=== PATIENT | female | born 1945 | race Caucasian/White ===

== ENCOUNTER 2017-05-29 07:30 | Inpatient (IN) | payer MEDICARE, BC ==
[~2017-05-29 07:30] MED LIST: Povidone-Iodine 10% Soln 118.25 ML Bottle ONE; Thrombin (Bovine) 5,000 Unit Kit ONE
[2017-05-29] MEDS ORDERED: Scopolamine 1.5 MG Transdermal Patch TOP SCH (08:30)
[2017-05-29] MEDS ORDERED: Gabapentin 300 MG Cap PO ONE (08:30)
[2017-05-29] MEDS ORDERED: Succinylcholine 200 MG/10 ML MDV ONE (09:17)
[2017-05-29] MEDS ORDERED: Dexamethasone 4 MG/ML SDV ONE ×2 (09:17→11:11)
[2017-05-29] MEDS ORDERED: Rocuronium 50 MG/5 ML Vial ONE (09:17)
[2017-05-29] MEDS ORDERED: Neostigmine Methylsulfate 1 MG/ML 5 ML Syringe ONE (09:17)
[2017-05-29] MEDS ORDERED: Propofol 200 MG/20 ML SDV ONE ×2 (09:17→11:43)
[2017-05-29] MEDS ORDERED: Ondansetron 4 MG/2 ML SDV ONE (09:17)
[2017-05-29] MEDS ORDERED: Glycopyrrolate 0.2 MG/ML 5 ML MDV ONE (09:17)
[2017-05-29] MEDS ORDERED: Albuterol/Ipratropium 3.0-0.5 MG/3 ML Neb Soln NEB ONE (09:31)
[2017-05-29] MEDS: Lactated Ringers 1,000 ML IV SCH (09:41)
[2017-05-29] MEDS ORDERED: Clindamycin Phosphate 900 MG in Sodium Chloride 0.9% 100 ML IV ONE (10:00)
[2017-05-29] MEDS ORDERED: Ketamine 500 MG/5 ML MDV IV ONE (10:30)
[2017-05-29] MEDS ORDERED: Ropivacaine 49.25 ML, Ketorolac 30 MG, EPINEPHrine 0.5 MG, cloNIDine 80 MCG, Sodium Chl... INJECT ONE ×5 (10:30)
[2017-05-29] MEDS: Tranexamic Acid 730 MG in Sodium Chloride 0.9% 50 ML IV SCH ×2 (11:00→14:45)
[2017-05-29] MEDS ORDERED: Lactated Ringers 1,000 ML ONE ×2 (12:24→13:20)
[2017-05-29] MEDS ORDERED: Vancomycin 1 GM SDV ONE (13:52)
[2017-05-29] MEDS ORDERED: Magnesium Hydroxide 400 MG/5 ML Susp 30 ML Cup PO PRN (14:29)
[2017-05-29] MEDS ORDERED: Zolpidem 5 MG Tab PO PRN (14:29)
[2017-05-29] MEDS ORDERED: HYDROmorphone 1 MG/ML Syringe IVPUSH PRN (14:29)
[2017-05-29] MEDS ORDERED: Naloxone 0.4 MG/ML SDV IVPUSH PRN (14:29)
[2017-05-29] MEDS ORDERED: Diazepam 5 MG Tab PO PRN (14:29)
[2017-05-29] MEDS ORDERED: Ondansetron 4 MG/2 ML SDV IVPUSH PRN (14:29)
[2017-05-29] MEDS ORDERED: Aluminum Hydroxide/Magnesium Hydroxide/Simethicone Susp 30 ML Cup PO PRN (14:29)
[2017-05-29] MEDS ORDERED: Sennosides 8.6 MG Tab PO PRN (14:29)
[2017-05-29] MEDS ORDERED: Acetaminophen 1,000 MG in Premix Bag 1 BAG IV ONE (15:30)
[2017-05-29] MEDS: oxyCODONE 5 MG Tab PO PRN ×2 (15:33→20:16)
[2017-05-29] MEDS: VERIFY SCOPOLAMINE PATCH TOP SCH (16:31)
[2017-05-29] MEDS: Dexamethasone 4 MG/ML SDV IVPUSH SCH ×2 (16:32→22:17)
[2017-05-30] MEDS: oxyCODONE 5 MG Tab PO PRN ×2 (00:48→05:26)
[2017-05-30] MEDS: Lactated Ringers 1,000 ML IV SCH (01:26)
[2017-05-30] MEDS: Dexamethasone 4 MG/ML SDV IVPUSH SCH (03:06)
[2017-05-30] MEDS ORDERED: Acetaminophen/oxyCODONE 325-5 MG Tab PO PRN ×2 (08:03→14:33)
[2017-05-30] MEDS: VERIFY SCOPOLAMINE PATCH TOP SCH (08:22)
[2017-05-30 10:54] VITALS: BP 109/64
--- NOTE | 2017-05-30 11:50 | OR ---
DATE OF PROCEDURE: 05/29/2017 PREOPERATIVE DIAGNOSES: 1. Pseudoarthrosis at L4-L5. 2. 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 3. 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 POSTOPERATIVE DIAGNOSES: 1. Pseudoarthrosis at L4-L5. 2. 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 3. 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 PROCEDURES PERFORMED: 1. Use of intraoperative fluoroscopy. 2. Posterior lateral lumbar fusion at L3-L4 and L5-S1. 3. Revision of posterior lateral lumbar fusion at L4-L5. 4. Removal of previous instrumentation at L4-L5. 5. Posterior segmental instrumentation at L3-L4, L4-L5, and L5-S1. 6. Interbody cage placement at L3-L4. 7. Laminectomy required in addition to decompression for interbody placement at L3-L4. 8. Autograft from laminectomy used with Globus Signify allograft mixed and placed in the interbody space at L3-L4, as well as the posterior lateral fusion on the right at L3 through S1. BARREL ENDSHAKER ADJUSTER: MO Weaver ANESTHESIA: General endotracheal intubation. FLUIDS: Lactated Ringer solution. ESTIMATED BLOOD LOSS: 300 mL. COMPLICATIONS: None. SPECIMENS: None. DISCHARGE DISPOSITION: Stable to PACU. INSTRUMENTATION: Globus RISE 10 x 22, 10-degree, 8 x 14 mm interbody cage to L3-L4, 6.5 x 50 mm screws at L3, 7.5 x 45 mm screws at L4, 7.5 x 40 mm screws at L5, and 6.5 x 45 mm screws at S1. HISTORY AND INDICATIONS FOR PROCEDURE: The patient was seen by myself in the clinic. She had previously had a lumbar fusion in 2012 at [facility]. She did well for a period of time, and then started having increasing bilateral leg pain with the left worse than the right. Preoperative imaging confirmed the above mentioned diagnoses. Risks and benefits of the procedure were explained to the patient, and informed consent was obtained. DETAILS OF PROCEDURE: The patient was seen preoperatively by myself and the Anesthesia staff in the preoperative holding area, where the operative site was marked. She was brought to the operative suite by the Anesthesia staff where general anesthesia was administered. A sterile Ji catheter was placed. The fluoroscopy unit was draped in a sterile manner. Neuromonitoring leads were placed on the patient. The patient was then flipped into a prone position on a Mark table. All extremities were found to be well padded. The bed was flexed slightly, so that the head was more elevated than the lower extremities. Neuromonitoring leads were found to be normal at baseline and remained normal throughout the case. The patient was then prepped and draped in a sterile manner. Time-out was called, identifying the correct patient, the correct procedure, the correct site, and that antibiotics had begun within the appropriate period of time. The sterilely draped fluoroscopy unit was then brought into lateral position, and we marked L3 through S1 pedicles. I then made a midline incision, coming over the spinous process of L3 and the spinous process of S1 in a midline manner down to the fascia and spinous process. Bleeding was controlled during the case with Bovie electrocautery, bipolar electrocautery, and an Aquamantys 5.0 unit. I used cerebellar for retraction initially. I then used a Mike elevator for dissection. I dissected with a Bovie and a Mike elevator over the spinous processes, lamina, and transverse process of L1; as well as the spinous process, lamina, and sacral ala of S1. The laminectomy defect was then avoided by going more laterally, and I easily found the previous instrumentation at L4-L5. I then dissected down over the transverse processes of L4 and L5, and then inserted a Versa-Trac retractor for retraction. I then cleaned off the previous instrumentation and removed it, and used a pedicle probe to ensure that there was no breach of the medial lateral wall. These were measured, and then I inserted the screws into these previous screw holes. After that was accomplished, I then did the right side first placing screws at L3 and then S1 by drilling over the transverse process down to the medial border of the pars at L3, and then using a PediGuard and then pedicle probe tap, pedicle probe, and screw placement. This was repeated at S1, except that I palpated the cranial margin of the S1 lamina, and then came just lateral to the L5-S1 facet joint and then proceeded in the same manner. I did the left and then the right side. We tested our screws; S1 on the right was 14 and S1 on the left was 19. Otherwise, everything was 25 and above. I deemed that 14 was certainly reasonable, as they did look good on AP and lateral radiographs. After this had been accomplished, we focused on her laminectomy at L3-L4 for the central stenosis. The laminectomy was performed by removing soft tissue, and then taking the lamina off with rongeurs and Kerrisons, and saving it for autograft. After this had been accomplished, I was able to remove the ligamentum flavum with Kerrison rongeurs, protecting the dura with a long ball. We then came out and I made a left facetectomy at L3-L4 on the left. I was then able to identify the disk space at L3-L4 in a transforaminal manner and inserted a Halbur #4, and then a long blade and then sequential sommer from 7 to 10, pituitary rongeurs, curettes, and then I used the pituitaries again to remove any disk material for disk preparation and endplate preparation. I then mixed some autograft with some Signify allograft, and placed this anteriorly in the disk space using a bone funnel. I then inserted my interbody device under fluoroscopic visualization until it was at the anterior margin of the vertebral body, and then expanded it all the way. This appeared to be in good position on our AP and lateral views. Because there was no foraminal stenosis at L4-L5 and L5-S1, I did not place interbody devices at those levels. There was a minor amount of motion, and I thought that we could graft and just use our posterior lateral fusion. We then inserted our tulips and then placed our rods, which were 90 mm x 5.5, our locking caps, and then torqued down. I did have to use a shipping and receiving associate at the L3 level. After this had been accomplished, we then copiously irrigated with 3 L of Betadine-infused irrigation. I then grafted the right posterior lateral gutter with the transverse processes and ala and then placed the remaining autograft and allograft. After this had been accomplished, I applied half of the vancomycin under the fascia and half over the fascia; 1- 1/2 packets of Gelfoam powder under the fascia, and one half over the fascia. The deep fascia was closed with #1 STRATAFIX, then deep subcu closure with #2 STRATAFIX, followed by superficial subcutaneous closure with 3-0 STRATAFIX, followed by a sterile dressing. The patient was then rolled back into a supine position on hospital bed. Neuromonitoring leads were removed. POSTOPERATIVE CONDITION: The patient was transferred to the PACU in stable condition. Physician assistant men's lacrosse coach, Marilee Lopez NP, played an essential role in assisting in this case, helping to position the patient, retract structures as needed, as well as suturing and cutting sutures as indicated. Her presence improved patient's safety and decreased operative time. Barry Rand DO /[id number]
--- NOTE | 2017-06-19 09:30 | PCM.DCSUM1 ---
Discharge Summary - Hospital Course Free Text/Narrative:: Patient is status pod 2 of a lumbar fusion revision of L3-S1. She is doing well. Pain is under control with oral pain medication. PT/OT is going well. - Discharge Data Discharge Date: 05/30/17 Discharge Disposition: Home, Self-Care 01 Condition: Good - Patient Summary/Data Consults: Consultations 05/29/17 14:29 OT Evaluation and Treatment [CONS] Routine Please Evaluate and Treat. OT Reason for Consult: Strengthening This query below is only for informational purposes and is not editable. PT Evaluation and Treatment [CONS] Routine Please Evaluate and Treat. PT Reason for Consult: Strengthening This query below is only for informational purposes and is not editable. - Patient Instructions Diet: Regular Diet as Tolerated Activity: As Tolerated Activity, Other: No lifting greater than 5# for 1 month Driving: Do Not Drive Showering/Bathing: May Shower Wound/Incision Care: Change Dressing Daily Notify Provider of: Fever, Increased Pain, Swelling and Redness, Drainage, Nausea and/or Vomiting - Discharge Plan Prescriptions/Med Rec: Acetaminophen/oxyCODONE [Percocet 325-5 MG] 1 tab PO Q6HR #90 tablet Aspirin 325 mg PO DAILY #30 tablet Home Medications: Home Meds Folic Acid 1 mg PO DAILY 02/11/14 [History] Meloxicam [Mobic] 15 mg PO DAILY 02/11/14 [History] Omeprazole 20 mg PO DAILY 02/11/14 [History] Simvastatin [Zocor] 40 mg PO BEDTIME 02/11/14 [History] Alendronate [Fosamax] 70 mg PO Q7D@0600 12/02/14 [History] Calcium Carb/Vit D3/Minerals [Calcium 600+D Plus Minerals] 2 tab PO DAILY [History] Cyanocobalamin (Vitamin B-12) [B-12 Dots] 500 mcg PO DAILY 12/02/14 [History] Gabapentin 600 mg PO BID 12/02/14 [History] Multivitamin with Minerals [Multiple Vitamin] 1 tab PO DAILY 12/02/14 [History] Vitamin E 400 unit PO DAILY 12/02/14 [History] buPROPion HCl [Wellbutrin SR] 150 mg PO BID 12/02/14 [History] Ascorbate Calcium/Bioflavonoid [Lorene-C 500 MG] 1 tab PO DAILY 11/05/15 [History ] Methotrexate Sodium [Methotrexate] 25 mg IJ Q7D 11/05/15 [History] predniSONE [Prednisone] 5 mg PO ASDIRECTED 11/05/15 [History] sulfaSALAzine [Azulfidine] 1,000 mg PO BID 11/05/15 [History] Metoprolol Tartrate [Lopressor] 12.5 mg PO Q12HR 06/09/16 [History] Triamterene/Hydrochlorothiazid [Triamterene-HCTZ 37.5-25 MG] 1 tab PO DAILY [History] Sennosides/Docusate Sodium [Senokot-S Tablet] 1 each PO BID 04/24/17 [History] Acetaminophen/oxyCODONE [Percocet 325-5 MG] 1 tab PO Q6HR #90 tablet 05/30/17 [ Rx] Aspirin 325 mg PO DAILY #30 tablet 05/30/17 [Rx] Other Amb Orders: PT Evaluation and Treatment [CONS] Location: Determined By Patient Referrals: Marilee Lopez ASSOCIATE FACULTY [Nurse Practitioner] - (1 month follow up ) - Discharge Summary/Plan Comment DC Time >30 min.: Yes Discharge Summary/Plan Comment: Whit will be dcd today. She is to follow up with ortho in 1 month. She will be sent home on percocet. - Patient Data Vitals - Most Recent: Last Vital Signs Temp 36.7 C 05/30/17 10:53 Pulse 90 05/30/17 10:53 Resp 18 05/30/17 10:53 BP 109/64 05/30/17 10:53 Pulse Ox 94 L 05/30/17 10:53 Weight - Most Recent: 159 lb 1.016 oz Med Orders - Current: Current Medications Discontinued Medications Al Hydroxide/Mg Hydroxide (Mag-Al Plus) 30 ml PO Q4H PRN PRN Reason: Indigestion Albuterol/Ipratropium (Duoneb 3.0-0.5 Mg/3 Ml) 3 ml NEB ONETIME ONE Stop: 05/29/17 09:32 Last Admin: 05/29/17 09:49 Dose: 3 ml Ropivacaine 49.25 ml/Ketorolac Tromethamine 30 mg/Epinephrine HCl 0.5 mg/ Clonidine HCl 80 mcg/ Sodium Chloride 48.45 ml 0 ml INJECT ONETIME ONE Stop: 05/29/17 10:31 Last Admin: 05/29/17 12:22 Dose: 50 ml Dexamethasone (Dexamethasone) Confirm Administered Dose 4 mg .ROUTE .STK-MED ONE Stop: 05/29/17 09:18 Dexamethasone (Dexamethasone) Confirm Administered Dose 4 mg .ROUTE .STK-MED ONE Stop: 05/29/17 11:12 Dexamethasone (Dexamethasone) 4 mg IVPUSH Q6H ISELA Stop: 05/30/17 04:01 Last Admin: 05/30/17 03:06 Dose: 4 mg Diazepam (Valium.) 5 mg PO Q6H PRN PRN Reason: Spasms Fentanyl Citrate (Fentanyl) Confirm Administered Dose 500 mcg .ROUTE .STK-MED ONE Stop: 05/29/17 09:18 Gabapentin (Neurontin) 300 mg PO ONETIME ONE Stop: 05/29/17 08:31 Last Admin: 05/29/17 08:59 Dose: 300 mg Glycopyrrolate (Robinul) Confirm Administered Dose 1 mg .ROUTE .STK-MED ONE Stop: 05/29/17 09:18 Hydromorphone HCl (Dilaudid) 1 mg IVPUSH Q2H PRN PRN Reason: Pain Stop: 05/30/17 14:29 Clindamycin Phosphate 900 mg/ (Sodium Chloride) 106 mls @ 200 mls/hr IV ONETIME ONE Stop: 05/29/17 10:31 Last Admin: 05/29/17 10:55 Dose: 200 mls/hr Lactated Ringer's (Ringers, Lactated) 1,000 mls @ 100 mls/hr IV ASDIRECTED [facility] Last Admin: 05/30/17 01:26 Dose: 100 mls/hr Tranexamic Acid 730 mg/ Sodium (Chloride) 57.3 mls @ 229.2 mls/hr IV Q3H [facility] Stop: 05/29/17 13:44 Last Admin: 05/29/17 14:45 Dose: 229.2 mls/hr Ketamine HCl 100 mg/ Sodium (Chloride) 100 mls @ 14 mls/hr IV ASDIRECTED [facility] Stop: 05/29/17 12:30 Lactated Ringer's (Ringers, Lactated) Confirm Administered Dose 1,000 mls @ as directed .ROUTE .STK-MED ONE Stop: 05/29/17 12:25 Lactated Ringer's (Ringers, Lactated) Confirm Administered Dose 1,000 mls @ as directed .ROUTE .STK-MED ONE Stop: 05/29/17 13:21 Acetaminophen 1,000 mg/ Premix 100 mls @ 400 mls/hr IV NOW ONE Stop: 05/29/17 15:44 Last Admin: 05/29/17 16:32 Dose: 400 mls/hr Clindamycin Phosphate 600 mg/ (Sodium Chloride) 54 mls @ 100 mls/hr IV Q8H ISELA Stop: 05/30/17 09:33 Last Admin: 05/30/17 08:11 Dose: 100 mls/hr Ketamine HCl (Ketalar) 24 mg IV ONETIME ONE Stop: 05/29/17 10:31 Last Admin: 05/29/17 16:30 Dose: Not Given Magnesium Hydroxide (Milk Of Magnesia) 30 ml PO BID PRN PRN Reason: Constipation Naloxone HCl (Narcan) 0.2 mg IVPUSH ONETIME PRN PRN Reason: Oversedation Neostigmine Methylsulfate (Neostigmine) Confirm Administered Dose 5 mg .ROUTE .STK-MED ONE Stop: 05/29/17 09:18 Verify Scopolamine (Patch) 0 each TOP DAILY ISELA Last Admin: 05/30/17 08:22 Dose: Not Given Ondansetron HCl (Zofran) Confirm Administered Dose 4 mg .ROUTE .STK-MED ONE Stop: 05/29/17 09:18 Ondansetron HCl (Zofran) 8 mg IVPUSH Q4H PRN PRN Reason: Nausea/Vomiting Oxycodone HCl (Oxycodone) 10 mg PO Q4H PRN PRN Reason: Pain Stop: 05/30/17 14:31 Last Admin: 05/30/17 05:26 Dose: 10 mg Oxycodone/Acetaminophen (Percocet 325-5 Mg) 2 tab PO Q4H PRN PRN Reason: Pain Oxycodone/Acetaminophen (Percocet 325-5 Mg) 2 tab PO Q4H PRN PRN Reason: Pain Last Admin: 05/30/17 08:21 Dose: 2 tab Povidone Iodine (Betadine 10% Soln) Confirm Administered Dose 1 ml .ROUTE .STK- MED ONE Stop: 05/29/17 07:07 Last Admin: 05/29/17 12:07 Dose: 1 ml Propofol (Diprivan 20 Ml) Confirm Administered Dose 200 mg .ROUTE .STK-MED ONE Stop: 05/29/17 09:18 Propofol (Diprivan 20 Ml) Confirm Administered Dose 600 mg .ROUTE .STK-MED ONE Stop: 05/29/17 11:44 Rocuronium [place] (Zemuron) Confirm Administered Dose 50 mg .ROUTE .STK-MED ONE Stop: 05/29/17 09:18 Scopolamine (Transderm-Scop) 1.5 mg TOP Q72H ISELA Stop: 06/01/17 06:30 Last Admin: 05/29/17 09:00 Dose: 1.5 mg Senna (Senna) 8.6 mg PO BID PRN PRN Reason: Constipation Last Admin: 05/29/17 20:17 Dose: 8.6 mg Succinylcholine Chloride (Quelicin) Confirm Administered Dose 200 mg .ROUTE .STK -MED ONE Stop: 05/29/17 09:18 Thrombin (Thrombin-Jmi) Confirm Administered Dose 15,000 unit .ROUTE .STK-MED ONE Stop: 05/29/17 07:07 Last Admin: 05/29/17 12:07 Dose: 10,000 unit Vancomycin HCl (Vancomycin) Confirm Administered Dose 1 gm .ROUTE .STK-MED ONE Stop: 05/29/17 13:53 Last Admin: 05/29/17 14:02 Dose: 1 gm Zolpidem Tartrate (Ambien) 5 mg PO BEDTIME PRN PRN Reason: Sleep - Exam General: Reports: Alert, Oriented Back Exam: Reports: Normal Inspection, Full Range of Motion Extremities: Normal Inspection, Normal Range of Motion, Non-Tender, No Pedal Edema, Normal Capillary Refill Skin: Reports: Warm, Dry, Intact Wound/Incisions: Reports: Healing Well, Dressing Dry and Intact Neurological: Reports: No New Focal Deficit, Normal Gait, Strength Equal Bilateral, Reflexes Equal Bilateral Psy/Mental Status: Reports: Alert *Q Meaningful Use (DIS) - VTE *Q VTE Criteria *Q: - Stroke *Q Stroke Criteria *Q: - AMI *Q AMI Criteria *Q:
== END 2017-05-30 15:04 | disposition home or self-care (01) | DRG 460 ==
LOC: EDSTATUS 07:30 → JP.MS 08:11 → JP.SDS 08:11 → JP.MS 14:29
PROVIDERS: ADMIT Orthopaedic Surgery; ATTEND Orthopaedic Surgery
PROC: 0SG10AJ Fusion of 2 or more Lumbar Vertebral Joints with Interbody Fusion Device, Posterior Approach, Anterior Column, Open Approach (ICD-10-PCS; principal; 2017-05-29)
PROC: 00NY0ZZ Release Lumbar Spinal Cord, Open Approach (ICD-10-PCS; 2017-05-29)
PROC: 0QP004Z Removal of Internal Fixation Device from Lumbar Vertebra, Open Approach (ICD-10-PCS; 2017-05-29)
DX: M96.0 Pseudarthrosis after fusion or arthrodesis (principal); M48.061 Spinal stenosis, lumbar region without neurogenic claudication; G31.89 Other specified degenerative diseases of nervous system; I10 Essential (primary) hypertension; M06.9 Rheumatoid arthritis, unspecified; Z85.828 Personal history of other malignant neoplasm of skin; Z96.659 Presence of unspecified artificial knee joint; Z98.1 Arthrodesis status; Z79.52 Long term (current) use of systemic steroids; Z88.1 Allergy status to other antibiotic agents; Z88.5 Allergy status to narcotic agent; Z88.0 Allergy status to penicillin; M47.9 Spondylosis, unspecified
CPT/HCPCS: 36415; 76001; 80048; 85025; 86850; 86900; 86901; 94762; 97162-GP; 97165-GO; A9270-GY; C1713; J0131; J0171; J0330; J0735; J1100; J1885; J2405; J2704; J2710; J2795; J3010; J3370; J7030; J7050; J7120; J7620; S0077

== ENCOUNTER 2021-03-03 10:28 | Emergency (ER) | payer MEDICARE, BC ==
[2021-03-03 10:48] VITALS: BP 137/98; PULSE 75
[2021-03-03] MEDS ORDERED: Sodium Chloride 0.9% 10 ML Syringe FLUSH PRN (10:51)
[2021-03-03] MEDS ORDERED: HYDROmorphone 0.5 MG/0.5 ML Syringe IVPUSH ONE ×2 (10:52→12:33)
--- NOTE | 2021-03-03 11:15 | CR ---
Shoulder Comp Rt CLINICAL HISTORY: Fall FINDINGS: There is a comminuted displaced fracture of the proximal humerus. Scapula appears intact. There are some degenerative change at the AC joint Impression: Comminuted displaced fracture proximal humerus
[2021-03-03] MEDS ORDERED: Bacitracin Oint 1 GM U/D Packet TOP ONE (11:49)
--- NOTE | 2021-03-03 11:53 | EDM.PDOC ---
ED HPI GENERAL MEDICAL PROBLEM - General Chief Complaint: Upper Extremity Injury/Pain Stated Complaint: FELL LANDED AGAINST FREEZER Time Seen by Provider: 03/03/21 11:48 Source of Information: Reports: Patient History Limitations: Reports: No Limitations - History of Present Illness INITIAL COMMENTS - FREE TEXT/NARRATIVE: pt arrived after having a fall at home. She landed on her rt shoulder and it is very painful Onset: Today, Sudden Duration: Hour(s): Location: Reports: Upper Extremity, Right, Lower Extremity, Left, Other (pt has an abrasion on the left foot which is bleeding. ) Associated Symptoms: Reports: No Other Symptoms Right Shoulder Pain Score (Numeric/FACES): 10 - Related Data Allergies Allergy/AdvReac Type Severity Reaction Status Date / Time Penicillins Allergy Hives Verified 03/03/21 10:53 codeine AdvReac Stomach Verified 03/03/21 10:53 Ache erythromycin base AdvReac Nausea Verified 03/03/21 10:53 [Erythromycin Base] Home Meds: Home Meds Folic Acid 1 mg PO DAILY 02/11/14 [History] Meloxicam [Mobic] 15 mg PO DAILY 02/11/14 [History] Omeprazole 20 mg PO DAILY 02/11/14 [History] Simvastatin [Zocor] 40 mg PO BEDTIME 02/11/14 [History] Alendronate [Fosamax] 70 mg PO Q7D@0600 12/02/14 [History] Calcium Carb/Vit D3/Minerals [Calcium 600+D Plus Minerals] 2 tab PO DAILY 12/02/14 [History] Gabapentin 600 mg PO BID 12/02/14 [History] Multivitamin with Minerals [Multiple Vitamin] 1 tab PO DAILY 12/02/14 [History] buPROPion HCL [Wellbutrin SR] 150 mg PO BID 12/02/14 [History] metHOTREXate sodium [Methotrexate] 25 mg IJ Q7D 11/05/15 [History] Metoprolol Tartrate [Lopressor] 25 mg PO BID 06/09/16 [History] Triamterene/Hydrochlorothiazid [Triamterene-HCTZ 37.5-25 MG] 1 tab PO DAILY 06/09/16 [History] predniSONE [Jay] 4 mg PO DAILY 05/06/18 [History] Glucosam/Chond-Msm1/C/Lul/Bor [Ldzgysy-Ncuth-FSY Complex Cplt] 1 tab PO DAILY 06/27/18 [History] predniSONE [Prednisone] 15 mg PO DAILY PRN 06/27/18 [History] Acetaminophen [Tylenol Extra Strength] 1,000 mg PO BID 08/25/18 [History] Past Medical History HEENT History: Reports: Cataract, Impaired Vision Cardiovascular History: Reports: High Cholesterol, Hypertension, PVD, Other (See Below) Other Cardiovascular History: hyperlipidemia Respiratory History: Reports: Pneumonia, Recurrent Gastrointestinal History: Reports: GERD Genitourinary History: Reports: UTI, Recurrent WATER QUALITY ASSISTANT History: Reports: , Spontaneous Other WATER QUALITY ASSISTANT History: ASCUS, HPV, LSIL, HGSIL Musculoskeletal History: Reports: Back Pain, Chronic, Osteoarthritis, RA, Other (See Below) Other Musculoskeletal History: s/p TLIF L3-S1 05/29/17, spinal stenosis Neurological History: Reports: None Psychiatric History: Reports: None Endocrine/Metabolic History: Reports: None Hematologic History: Reports: Blood Transfusion(s) Immunologic History: Reports: None Oncologic (Cancer) History: Reports: Basal Cell Carcinoma, Other (See Below) Other Oncologic History: 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 Dermatologic History: Reports: None - Infectious Disease History Infectious Disease History: Reports: Chicken Pox, Measles, Shingles - Past Surgical History Head Surgeries/Procedures: Reports: None HEENT Surgical History: Reports: Cataract Surgery Cardiovascular Surgical History: Reports: None Respiratory Surgical History: Reports: None GI Surgical History: Reports: Appendectomy, Colonoscopy, EGD, Hernia, Abdominal Female Surgical History: Reports: Tubal Ligation Other Female Surgeries/Procedures: cervical biopsies Neurological Surgical History: Reports: C-Spine, Lumbar Spine, Spinal Fusion Musculoskeletal Surgical History: Reports: Knee Replacement, Other (See Below) Other Musculoskeletal Surgeries/Procedures:: spinal fusion, right wrist replacement Oncologic Surgical History: Reports: None Dermatological Surgical History: Reports: Skin Biopsy Social & Family History - Family History Family Medical History: No Pertinent Family History HEENT: Reports: Impaired Vision, Other (See Below) Other HEENT Family History: BROTHER HAD TUMORS REMOVED FROM BEHIND HIS EYES Cardiac: Reports: CAD Respiratory: Reports: COPD GI: Reports: Cholelithiasis : Reports: None OBGYN: Reports: None Musculoskeletal: Reports: Fibromyalgia Neurological: Reports: MS Psychiatric: Reports: None Endocrine/Metabolic: Reports: None Hematologic: Reports: None Immunologic: Reports: None Dermatologic: Reports: None Oncologic: Reports: None - Tobacco Use Tobacco Use Status *Q: Former Tobacco User Years of Tobacco use: 30 Packs/Tins Daily: 0 Used Tobacco, but Quit: No Second Hand Smoke Exposure: No - Caffeine Use Caffeine Use: Reports: Coffee - Alcohol Use Days Per Week of Alcohol Use: 0 - Recreational Drug Use Recreational Drug Use: No Review of Systems - Review of Systems Review Of Systems: See Below Constitutional: Reports: No Symptoms Eyes: Reports: No Symptoms Ears: Reports: No Symptoms Nose: Reports: No Symptoms Mouth/Throat: Reports: No Symptoms Respiratory: Reports: No Symptoms Musculoskeletal: Reports: Other ( severe pain and deformity in the rt shoulder. ) ED EXAM, GENERAL - Physical Exam Exam: See Below Free Text/Narrative:: pt arrived after a fall and she landed opn her rt shoulder. She has an abrasion on the left foot that is bleeding. The left foot is not painful Exam Limited By: No Limitations General Appearance: Alert, Anxious, Moderate Distress Ears: Normal TMs Nose: Normal Inspection Throat/Mouth: Normal Inspection Head: Atraumatic Neck: Normal Inspection Respiratory/Chest: No Respiratory Distress Cardiovascular: Regular Rate, Rhythm GI/Abdominal: Soft, Abnormal Bowel Sounds Rectal (Female) Exam: Deferred Back Exam: Normal Inspection Extremities: Other (pt has deformity of the rt shoulder. It is very uncomfortable. There is an abrasion to the left foot. The foot is not painful. ) Course - Vital Signs Last Recorded V/S: Last Vital Signs Temp 36.4 C 03/03/21 11:01 Pulse 75 03/03/21 11:01 Resp 20 03/03/21 11:01 BP 137/98 H 03/03/21 11:01 Pulse Ox 92 L 03/03/21 11:01 - Orders/Labs/Meds Orders: Active Orders 24 hr Category Date Time Status Sodium Chloride 0.9% [Saline Flush] Med 03/03/21 10:51 Active 10 ml FLUSH ASDIRECTED PRN Saline Lock Insert [OM.PC] Routine Oth 03/03/21 10:51 Ordered Medication Orders Sodium Chloride (Sodium Chloride 0.9% 10 Ml Syringe) 10 ml FLUSH ASDIRECTED PRN PRN Reason: Keep Vein Open Meds: Medications Generic Name Dose Route Start Last Admin Trade Name Freq PRN Reason Stop Dose Admin Sodium Chloride 10 ml 03/03/21 10:51 Sodium Chloride 0.9% 10 Ml Syringe FLUSH ASDIRECTED PRN Keep Vein Open Discontinued Medications Generic Name Dose Route Start Last Admin Trade Name Giana PRN Reason Stop Dose Admin Hydromorphone HCl 0.5 mg 03/03/21 10:52 03/03/21 11:33 Hydromorphone 0.5 Mg/0.5 Ml Syringe IVPUSH 03/03/21 10:53 0.5 mg ONETIME ONE Administration - Re-Assessments/Exams Free Text/Narrative Re-Assessment/Exam: 03/03/21 11:53 xray reveals a fracture of the head of the humerus with displacement. This will need surgical repair. Pt was given dilaudid .5 iv for pain and she is more comfortable. Departure - Departure Time of Disposition: 11:55 Disposition: Home, Self-Care 01 Condition: Fair Clinical Impression: Displaced fracture of proximal end of right humerus - Discharge Information Referrals: Reggie Rosales MD [Primary Care Provider] - Care Plan Goals: shoulder imbolizer, cool pack to shoulder, rtc on Sunday for surgery. Will need preop exam, norco 5/325 q6h prn for pauin, hold tramodol while on the norco, continue other meds. Sepsis Event Note (ED) - Evaluation Sepsis Screening Result: No Definite Risk - Focused Exam Vital Signs: Vital Signs Temp Pulse Resp BP Pulse Ox 03/03/21 11:01 36.4 C 75 20 137/98 H 92 L 03/03/21 10:46 36.4 C 75 20 137/98 H 92 L - My Orders Last 24 Hours: My Active Orders 03/03/21 10:51 Sodium Chloride 0.9% [Saline Flush] 10 ml FLUSH ASDIRECTED PRN Saline Lock Insert [OM.PC] Routine - Assessment/Plan Last 24 Hours: My Active Orders 03/03/21 10:51 Sodium Chloride 0.9% [Saline Flush] 10 ml FLUSH ASDIRECTED PRN Saline Lock Insert [OM.PC] Routine
== END 2021-03-03 12:49 | disposition home or self-care (01) ==
LOC: JP.ED 10:28
DX: S42.291A Other displaced fracture of upper end of right humerus, initial encounter for closed fracture (principal); E78.00 Pure hypercholesterolemia, unspecified; I10 Essential (primary) hypertension; K21.9 Gastro-esophageal reflux disease without esophagitis; E78.5 Hyperlipidemia, unspecified; Z87.891 Personal history of nicotine dependence; Z88.5 Allergy status to narcotic agent; Z88.0 Allergy status to penicillin; Z88.1 Allergy status to other antibiotic agents; W18.39XA Other fall on same level, initial encounter; Y92.009 Unspecified place in unspecified non-institutional (private) residence as the place of occurrence of the external cause
CPT/HCPCS: 73030; 96374; 99283; J1170

== ENCOUNTER 2021-03-06 22:37 | Inpatient (IN) | payer MEDICARE, BC ==
[2021-03-06] MEDS ORDERED: Sodium Chloride 0.9% 10 ML Syringe FLUSH PRN (23:29)
[2021-03-06] MEDS ORDERED: Ondansetron 4 MG/2 ML SDV IVPUSH ONE (23:29)
[2021-03-06] MEDS ORDERED: HYDROmorphone 0.5 MG/0.5 ML Syringe IVPUSH ONE (23:29)
--- NOTE | 2021-03-06 23:46 | EDM.PDOC ---
ED HPI GENERAL MEDICAL PROBLEM - General Chief Complaint: General Stated Complaint: SCHEDULED FOR SHOULDER SURGERY TOMORROW, PAIN Time Seen by Provider: 03/06/21 22:54 Source of Information: Reports: Patient, Family History Limitations: Reports: No Limitations - History of Present Illness INITIAL COMMENTS - FREE TEXT/NARRATIVE: Qi is a 75-year-old female presenting to the ED for possible admission for pain control. The patient was seen 4 days ago in the ED where she was found to have an acute displaced fracture of the proximal humerus just below the head. She was started on pain medication and placed in a shoulder immobilizer and sent home with the plan to have Dr. Ashby take her to the operating room on Sunday morning for surgical repair which will likely involve a shoulder replacement. The patient took her pain medicine this morning but was in bed tonight and was unable to get out of bed to take her dose of pain medicine. She called her son who decided to bring her in. She has been fairly resistant to oral pain medications. She was seen in the clinic on Sunday by Dr. Reggie Rosales for presurgical screening exam. She denies any new injury since the fall on . Right Shoulder Pain Score (Numeric/FACES): 10 - Related Data Allergies Allergy/AdvReac Type Severity Reaction Status Date / Time Penicillins Allergy Hives Verified 03/06/21 23:04 codeine AdvReac Stomach Verified 03/06/21 23:04 Ache erythromycin base AdvReac Nausea Verified 03/06/21 23:04 [Erythromycin Base] Home Meds: Home Meds Folic Acid 1 mg PO DAILY 02/11/14 [History] Meloxicam [Mobic] 7.5 mg PO BID 02/11/14 [History] Omeprazole 20 mg PO DAILY 02/11/14 [History] Simvastatin [Zocor] 40 mg PO BEDTIME 02/11/14 [History] Alendronate [Fosamax] 70 mg PO Q7D@0600 12/02/14 [History] Calcium Carb/Vit D3/Minerals [Calcium 600+D Plus Minerals] 2 tab PO DAILY 12/02/14 [History] Gabapentin 600 mg PO BID 12/02/14 [History] Multivitamin with Minerals [Multiple Vitamin] 1 tab PO DAILY 12/02/14 [History] buPROPion HCL [Wellbutrin SR] 150 mg PO BID 12/02/14 [History] metHOTREXate sodium [Methotrexate] 25 mg IJ Q7D 11/05/15 [History] Metoprolol Tartrate [Lopressor] 25 mg PO BID 06/09/16 [History] Triamterene/Hydrochlorothiazid [Triamterene-HCTZ 37.5-25 MG] 1 tab PO DAILY 06/09/16 [History] predniSONE [Jay] 4 mg PO DAILY 05/06/18 [History] Glucosam/Chond-Msm1/C/Lul/Bor [Imwlbrp-Gkhuu-BAU Complex Cplt] 1 tab PO DAILY 06/27/18 [History] predniSONE [Prednisone] 15 mg PO DAILY PRN 06/27/18 [History] Acetaminophen [Tylenol Extra Strength] 1,000 mg PO BID 08/25/18 [History] Aspirin [Maikel Chewable] 81 mg PO DAILY 03/04/21 [History] Clopidogrel [Plavix] 75 mg PO DAILY 03/04/21 [History] Cyclobenzaprine [Flexeril] 5 mg PO BEDTIME 03/04/21 [History] Hydrocodone/Acetaminophen [Hydrocodon-Acetaminophen 5-325] 1 tab PO Q6H PRN 03/06/21 [History] Past Medical History HEENT History: Reports: Cataract, Impaired Vision Cardiovascular History: Reports: High Cholesterol, Hypertension, PVD, Stents, Other (See Below) Other Cardiovascular History: hyperlipidemia Respiratory History: Reports: Pneumonia, Recurrent Gastrointestinal History: Reports: GERD Genitourinary History: Reports: UTI, Recurrent [employer] History: Reports: , Spontaneous Other [employer] History: ASCUS, HPV, LSIL, HGSIL Musculoskeletal History: Reports: Back Pain, Chronic, Osteoarthritis, RA, Other (See Below) Other Musculoskeletal History: s/p TLIF L3-S1 05/29/17, spinal stenosis Neurological History: Reports: None Psychiatric History: Reports: None Endocrine/Metabolic History: Reports: None Hematologic History: Reports: Blood Transfusion(s) Immunologic History: Reports: None Oncologic (Cancer) History: Reports: Basal Cell Carcinoma, Other (See Below) Other Oncologic History: 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 Dermatologic History: Reports: None - Infectious Disease History Infectious Disease History: Reports: Chicken Pox, Measles, Shingles - Past Surgical History Head Surgeries/Procedures: Reports: None HEENT Surgical History: Reports: Cataract Surgery Cardiovascular Surgical History: Reports: None, Coronary Artery Stent Respiratory Surgical History: Reports: None GI Surgical History: Reports: Appendectomy, Colonoscopy, EGD, Hernia, Abdominal Female Surgical History: Reports: Tubal Ligation Other Female Surgeries/Procedures: cervical biopsies Neurological Surgical History: Reports: C-Spine, Lumbar Spine, Spinal Fusion Musculoskeletal Surgical History: Reports: Knee Replacement, Other (See Below) Other Musculoskeletal Surgeries/Procedures:: spinal fusion, right wrist replacement Oncologic Surgical History: Reports: None Dermatological Surgical History: Reports: Skin Biopsy Social & Family History - Family History Family Medical History: No Pertinent Family History HEENT: Reports: Impaired Vision, Other (See Below) Other HEENT Family History: BROTHER HAD TUMORS REMOVED FROM BEHIND HIS EYES Cardiac: Reports: CAD Respiratory: Reports: COPD GI: Reports: Cholelithiasis : Reports: None OBGYN: Reports: None Musculoskeletal: Reports: Fibromyalgia Neurological: Reports: MS Psychiatric: Reports: None Endocrine/Metabolic: Reports: None Hematologic: Reports: None Immunologic: Reports: None Dermatologic: Reports: None Oncologic: Reports: None - Tobacco Use Tobacco Use Status *Q: Light Tobacco User Years of Tobacco use: 50 Packs/Tins Daily: 0.1 - Caffeine Use Caffeine Use: Reports: Coffee - Recreational Drug Use Recreational Drug Use: No ED ROS GENERAL - Review of Systems Review Of Systems: See Below Constitutional: Reports: No Symptoms HEENT: Reports: No Symptoms Respiratory: Reports: No Symptoms Cardiovascular: Reports: No Symptoms Endocrine: Reports: No Symptoms GI/Abdominal: Reports: No Symptoms : Reports: No Symptoms Musculoskeletal: Reports: Shoulder Pain (Right shoulder pain with limited mobility due to a proximal humeral fracture that is displaced) Skin: Reports: No Symptoms Neurological: Reports: No Symptoms Psychiatric: Reports: Anxiety Hematologic/Lymphatic: Reports: No Symptoms Immunologic: Reports: No Symptoms ED EXAM, GENERAL - Physical Exam Exam: See Below Exam Limited By: No Limitations General Appearance: Alert, Anxious, Mild Distress Eye Exam: Bilateral Eye: EOMI, PERRL Throat/Mouth: Normal Inspection, Normal Oropharynx Head: Atraumatic, Normocephalic Neck: Normal Inspection, Supple Respiratory/Chest: No Respiratory Distress, Lungs Clear, Normal Breath Sounds Cardiovascular: Normal Peripheral Pulses, Regular Rate, Rhythm, No Murmur Peripheral Pulses: 2+: Radial (L), Radial (R), Posterior Tibial (L), Posterior Tibial (R) GI/Abdominal: Normal Bowel Sounds, Soft, Non-Tender Extremities: Limited Range of Motion (Right shoulder), Other (Significant pain in the proximal right arm and shoulder. Any movement at all elicits significant discomfort.) Neurological: Alert, Oriented, Normal Cognition, No Motor/Sensory Deficits Psychiatric: Anxious Skin Exam: Warm, Dry, Intact Course - Vital Signs Last Recorded V/S: Last Vital Signs Temp 36.4 C 03/06/21 23:13 Pulse 85 03/06/21 23:13 Resp 16 03/06/21 23:13 BP 142/85 H 03/06/21 23:13 Pulse Ox 93 L 03/06/21 23:13 - Orders/Labs/Meds Orders: Active Orders 24 hr Category Date Time Status CBC WITH AUTO DIFF [HEME] Stat Lab 03/06/21 23:29 Ordered COMPREHENSIVE METABOLIC PN,CMP [CHEM] Stat Lab 03/06/21 23:29 Ordered Sodium Chloride 0.9% [Saline Flush] Med 03/06/21 23:29 Active 10 ml FLUSH ASDIRECTED PRN Saline Lock Insert [OM.PC] Routine Oth 03/06/21 23:29 Ordered Medication Orders Sodium Chloride (Sodium Chloride 0.9% 10 Ml Syringe) 10 ml FLUSH ASDIRECTED PRN PRN Reason: Keep Vein Open Last Admin: 03/06/21 23:39 Dose: 10 ml Documented by: JAVIER Meds: Medications Generic Name Dose Route Start Last Admin Trade Name Freq PRN Reason Stop Dose Admin Sodium Chloride 10 ml 03/06/21 23:29 03/06/21 23:39 Sodium Chloride 0.9% 10 Ml Syringe FLUSH 10 ml ASDIRECTED PRN Administration Keep Vein Open Discontinued Medications Generic Name Dose Route Start Last Admin Trade Name Freq PRN Reason Stop Dose Admin Hydromorphone HCl 0.5 mg 03/06/21 23:29 03/06/21 23:38 Hydromorphone 0.5 Mg/0.5 Ml Syringe IVPUSH 03/06/21 23:30 0.5 mg ONETIME ONE Administration Ondansetron HCl 4 mg 03/06/21 23:29 03/06/21 23:38 Ondansetron 4 Mg/2 Ml Sdv IVPUSH 03/06/21 23:30 4 mg ONETIME ONE Administration - Re-Assessments/Exams Free Text/Narrative Re-Assessment/Exam: 03/06/21 23:30 at this point, I discussed the case with Dr. Rosales who is the hospitalist on-call tonight. We will bring the patient in the hospital for pain management in anticipation of her scheduled surgery tomorrow. Departure - Departure Time of Disposition: 23:30 Disposition: Refer to Observation Clinical Impression: Displaced fracture of proximal end of humerus - Discharge Information Referrals: Reggie Rosales MD [Primary Care Provider] - Sepsis Event Note (ED) - Evaluation Sepsis Screening Result: No Definite Risk - Focused Exam Vital Signs: Vital Signs Temp Pulse Resp BP Pulse Ox 03/06/21 23:13 36.4 C 85 16 142/85 H 93 L 03/06/21 23:06 36.4 C 85 16 142/85 H 93 L - Problem List & Annotations (1) Displaced fracture of proximal end of right humerus SNOMED Code(s): 399842024, 629250277 Code(s): S42.201A - UNSP FRACTURE OF UPPER END OF RIGHT HUMERUS, INIT Status: Acute Priority: Medium Current Visit: No - Problem List Review Problem List Initiated/Reviewed/Updated: Yes - My Orders Last 24 Hours: My Active Orders 03/06/21 23:29 CBC WITH AUTO DIFF [HEME] Stat COMPREHENSIVE METABOLIC PN,CMP [CHEM] Stat Sodium Chloride 0.9% [Saline Flush] 10 ml FLUSH ASDIRECTED PRN Saline Lock Insert [OM.PC] Routine - Assessment/Plan Last 24 Hours: My Active Orders 03/06/21 23:29 CBC WITH AUTO DIFF [HEME] Stat COMPREHENSIVE METABOLIC PN,CMP [CHEM] Stat Sodium Chloride 0.9% [Saline Flush] 10 ml FLUSH ASDIRECTED PRN Saline Lock Insert [OM.PC] Routine
[2021-03-07] MEDS ORDERED: Sodium Chloride 0.9% 10 ML Syringe FLUSH PRN (00:16)
[2021-03-07] MEDS ORDERED: Ondansetron 4 MG/2 ML SDV IV PRN (00:16)
[2021-03-07] MEDS: HYDROmorphone 0.5 MG/0.5 ML Syringe IVPUSH PRN ×3 (00:50→10:52)
--- NOTE | 2021-03-07 01:56 | HP ---
CHIEF COMPLAINT: Right shoulder pain. HISTORY OF PRESENT ILLNESS: A 75-year-old has a proximal right humerus fracture she sustained last week, was seen in the emergency room and plan was for her to have reverse right shoulder replacement for the fracture to be done tomorrow. I saw her in clinic on the for preop. She did okay over the weekend, but tonight was in so much pain, she could not get out of bed to take her pain pill, was brought into the emergency room for further evaluation and pain control. The patient did receive IV Dilaudid in the emergency room and it did improve her pain. She otherwise denies any other complaints and there is no change from when I saw her on the for her preop. PAST MEDICAL HISTORY: 1. Rheumatoid arthritis with multiple joint surgeries in the past, most recently of her left foot and ankle, remove hardware. 2. Hernia repair with panniculectomy. 3. Abnormal Paps smear, for which she sees Gynecology. 4. Squamous cell skin cancer in situ of the neck removed in the past. 5. Previous back surgery with fusion of L4-5. 6. Left total knee arthroplasty. 7. Hyperlipidemia. 8. D and C in the past. 9. Planned breast biopsy with fibrocystic breast disease. 10.LEEP procedure for abnormal Pap smear. 11.Appendectomy. 12.Tubal ligation. 13.Three vaginal deliveries with one . 14.Fibrocystic breast disease. 15.Cyst drained in the past. 16.Normal colonoscopy. 17.Chronic pruritus. 18.Pinched nerve in her neck with previous neck surgery. 19.Bladder surgery. 20.Coronary artery disease, stent placed in August 2018, but is asymptomatic since then. She has had no trouble with anesthesia with any of her surgeries. CURRENT MEDICATIONS: 1. Acetaminophen 500 mg b.i.d. p.r.n. 2. Aspirin 81 mg daily that has been on hold since Sunday. 3. Plavix 75 mg daily, which has been on hold since Sunday. 4. Bupropion XR 150 mg b.i.d. 5. Calcium carbonate with vitamin D. 6. Flexeril 5 mg at bedtime. 7. Folic acid 1 mg daily. 8. Gabapentin 300 mg in the morning and 600 mg in the evening. 9. Glucosamine chondroitin. 10.Hydrocodone APAP 5/325 every 6 hours p.r.n. 11.Meloxicam which has been on hold. 12.Methotrexate injection every 7 days. 13.Metoprolol 25 mg b.i.d. 14.Multivitamin daily. 15.Prednisone, not sure what her current dose is. 16.Tramadol p.r.n. 17.Triamterene/hydrochlorothiazide 37.5/25 daily. ALLERGIES: PENICILLIN, CAUSES RASH; CODEINE, GI INTOLERANCE; AND ERYTHROMYCIN, NAUSEA AND VOMITING. SOCIAL HISTORY: Nonsmoker. She quit in 2013. FAMILY HISTORY: Mother had heart disease. Father had heart disease and aneurysm. Sister with pulmonary disease. Son with hypertension and depression. REVIEW OF SYSTEMS: Denies fevers, chills, or upper respiratory symptoms. She did have a little bit of nausea tonight. No diarrhea, constipation, or bloody black stools. No urinary problems reported. No swelling in her legs. No skin problems reported. Orthopedic complaints as above with severe right shoulder pain. No neurologic complaints reported. OBJECTIVE: VITAL SIGNS: Weight 68 kg, temp 36.4, blood pressure 142/85, pulse 85, respirations 16, and O2 saturation 93%. HEENT: Ears clear. Pharynx clear. NECK: Supple. No adenopathy, thyromegaly, JVD or carotid bruits. LUNGS: Clear. HEART: Regular without murmurs. ABDOMEN: Soft, nontender. No mass can be palpated. EXTREMITIES: No edema. She does have the discomfort to her right shoulder. NEUROLOGIC: Cranial nerves II through XII grossly intact. Alert and oriented. Mental status was normal. SKIN: Negative. LABORATORY DATA: White count 8.2, hemoglobin 10.1, and platelets 264,000. Sodium 141, potassium 3.2, chloride 100, and glucose 126. Liver functions, AST was slightly elevated at 41, but otherwise unremarkable. Creatinine was 0.8 and BUN 17. Did an EKG preop which showed normal sinus rhythm with PACs, ventricular rate 80 beats per minute with no specific ST-segment elevations or depressions seen. No dysrhythmias seen. ASSESSMENT AND PLAN: 1. Right proximal humerus fracture. Admit for pain control, has gotten relief with IV Dilaudid, which will continue. Admit her inpatient since she is going to be having surgery and plan was for stay night of surgery. 2. Rheumatoid arthritis with multiple surgeries as listed above. 3. Essential hypertension. 4. Coronary artery disease, which is stable. 5. Other medical problems as listed above. Reggie Rosales MD /[id number]
[2021-03-07] MEDS: Lactated Ringers 1,000 ML IV SCH ×3 (07:52→17:33)
[2021-03-07] MEDS ORDERED: ceFAZolin 2 GM in Premix Bag 1 BAG IV ONE (08:00)
[2021-03-07] MEDS ORDERED: Nozin Nasal Sanitizer NASBOTH SCH (09:00)
[2021-03-07] MEDS ORDERED: Propofol 200 MG/20 ML SDV ONE (09:39)
[2021-03-07] MEDS ORDERED: fentaNYL 100 MCG/2 ML SDV ONE (09:39)
[2021-03-07] MEDS: Metoprolol Tartrate 25 MG Tab PO SCH ×2 (09:46→21:42)
[2021-03-07] MEDS: Hydrochlorothiazide/Triamterene 25-37.5 Tab PO SCH (09:47)
[2021-03-07] MEDS ORDERED: Ondansetron 4 MG/2 ML SDV ONE (10:28)
[2021-03-07] MEDS ORDERED: Neostigmine Methylsulfate 1 MG/ML 5 ML Syringe ONE (10:28)
[2021-03-07] MEDS ORDERED: Glycopyrrolate 0.2 MG/ML 5 ML MDV ONE (10:28)
[2021-03-07] MEDS ORDERED: Succinylcholine 200 MG/10 ML MDV ONE (10:28)
[2021-03-07] MEDS ORDERED: Rocuronium 50 MG/5 ML Vial ONE (10:28)
[2021-03-07] MEDS ORDERED: Dexamethasone 4 MG/ML SDV ONE ×2 (10:28→12:01)
[2021-03-07] MEDS ORDERED: Bupivacaine 0.5% 30 ML SDV ONE (10:29)
[2021-03-07] MEDS ORDERED: Ondansetron 4 MG/2 ML SDV IVPUSH PRN (15:36)
[2021-03-07] MEDS ORDERED: Acetaminophen 325 MG Tab PO PRN (15:36)
[2021-03-07] MEDS ORDERED: Morphine 2 MG/ML SYRINGE IVPUSH PRN (15:36)
[2021-03-07] MEDS ORDERED: Sodium Chloride 0.9% 1,000 ML IV SCH (15:45)
[2021-03-07] MEDS ORDERED: METHOTREXATE SODIUM 25 MG/ML IJ SCH (16:00)
[2021-03-07] MEDS: ceFAZolin 1 GM in Premix Bag 1 BAG IV SCH (17:29)
[2021-03-07] MEDS: Acetaminophen/HYDROcodone 325-5 MG Tab PO PRN (17:32)
[2021-03-07] MEDS: NS + KCl 20mEq/L 1,000 ML IV SCH (17:38)
[2021-03-07] MEDS ORDERED: Cyclobenzaprine 10 MG Tab PO SCH (21:00)
[2021-03-07] MEDS: Nozin Nasal Sanitizer NASBOTH SCH (21:39)
[2021-03-07] MEDS: Docusate Sodium 100 MG Cap PO SCH (21:39)
[2021-03-07] MEDS: atorvaSTATin 20 MG Tab PO SCH (21:41)
[2021-03-07] MEDS: Gabapentin 300 MG Cap PO SCH (21:42)
[2021-03-07] MEDS: buPROPion 150 MG Tab.SR PO SCH (21:42)
[2021-03-08] MEDS: ceFAZolin 1 GM in Premix Bag 1 BAG IV SCH ×2 (02:18→09:45)
[2021-03-08] MEDS: NS + KCl 20mEq/L 1,000 ML IV SCH ×2 (04:28→15:47)
[2021-03-08] MEDS: Acetaminophen/HYDROcodone 325-5 MG Tab PO PRN ×2 (06:51→11:34)
[2021-03-08] MEDS: predniSONE 1 MG Tab PO SCH (07:38)
[2021-03-08] MEDS: Pantoprazole 40 MG Tab.CR PO SCH (07:39)
[2021-03-08] MEDS: Docusate Sodium 100 MG Cap PO SCH ×2 (08:41→21:25)
[2021-03-08] MEDS: Nozin Nasal Sanitizer NASBOTH SCH ×2 (08:41→21:24)
[2021-03-08] MEDS: Metoprolol Tartrate 25 MG Tab PO SCH ×2 (08:41→21:26)
[2021-03-08] MEDS: buPROPion 150 MG Tab.SR PO SCH ×2 (08:41→21:26)
[2021-03-08] MEDS: Clopidogrel 75 MG Tab PO SCH (08:42)
[2021-03-08] MEDS: Hydrochlorothiazide/Triamterene 25-37.5 Tab PO SCH (08:42)
[2021-03-08] MEDS: Gabapentin 300 MG Cap PO SCH ×2 (08:42→21:26)
[2021-03-08] MEDS: Folic Acid 1 MG Tab PO SCH (08:42)
[2021-03-08] MEDS ORDERED: Cyclobenzaprine 10 MG Tab PO ONE (09:00)
--- NOTE | 2021-03-08 12:56 | PCM.SURGPN ---
- General Info Date of Service: 03/08/21 Date of Surgery/Procedure: 03/07/21 POD#: 1 Post-Op Diagnosis: Right proximal humerus fracture Functional Status: Reports: Tolerating Diet, Ambulating - Review of Systems General: Reports: Weakness Cardiovascular: Reports: Lightheadedness Musculoskeletal: Reports: Joint Pain (right shoulder ), Joint Swelling Skin: Reports: Bruising Neurological: Reports: No Symptoms Psychiatric: Reports: No Symptoms - Patient Data Vitals - Most Recent: Last Vital Signs Temp 95.6 F L 03/08/21 07:00 Pulse 90 03/08/21 08:41 Resp 18 03/08/21 07:00 BP 106/61 03/08/21 08:41 Pulse Ox 92 L 03/08/21 07:00 Orthostatic Blood Pressure [ 99/63 Supine] Orthostatic Blood Pressure [ 155/89 Standing] Orthostatic Blood Pressure [ 79/51 Sitting] Weight - Most Recent: 156 lb I&O - Last 24 Hours: Intake & Output 03/07/21 03/08/21 03/08/21 22:59 06:59 14:59 Intake Total 250 200 Output Total 610 600 205 Balance -360 -600 -5 Lab Results Last 24 Hrs: Laboratory Results - last 24 hr 03/08/21 03/08/21 Range/Units 06:03 06:03 WBC 9.1 (4.5-11.0) K/uL RBC 2.41 L (3.30-5.50) M/uL Hgb 7.4 L D (12.0-15.0) g/dL Hct 24.1 L (36.0-48.0) % MCV 100 H (80-98) fL MCH 31 (27-31) pg MCHC 31 L (32-36) % Plt Count 267 (150-400) K/uL Sodium 144 (140-148) mmol/L Potassium 4.3 (3.6-5.2) mmol/L Chloride 107 (100-108) mmol/L Carbon Dioxide 31 (21-32) mmol/L Anion Gap 6.4 (5.0-14.0) mmol/L BUN 23 H (7-18) mg/dL Creatinine 0.7 (0.6-1.0) mg/dL Est Cr Clr Drug Dosing 55.77 mL/min Estimated GFR (MDRD) > 60 (>60) Glucose 111 H (74-106) mg/dL Calcium 7.7 L (8.5-10.1) mg/dL Med Orders - Current: Current Medications Acetaminophen (Acetaminophen 325 Mg Tab) 650 mg PO Q4H PRN PRN Reason: Pain/Fever Hydrocodone Bitart/Acetaminophen (Acetaminophen/Hydrocodone 325-5 Mg Tab) 1 tab PO Q4H PRN PRN Reason: Pain (mild 1-3) Last Admin: 03/08/21 11:34 Dose: 1 tab Documented by: Alendronate Sodium (Alendronate 70 Mg Tab) 70 mg PO Aguirre@0600 [facility] Atorvastatin Calcium (Atorvastatin 20 Mg Tab) 20 mg PO BEDTIME [facility] Last Admin: 03/07/21 21:41 Dose: 20 mg Documented by: Bandage/Support Products (Nozin Nasal Emergency Management Program Specialist) 1 applic NASBOTH BID [facility] Last Admin: 03/08/21 08:41 Dose: 1 applic Documented by: Bupropion HCl (Bupropion 150 Mg Tab.Sr) 150 mg PO BID [facility] Last Admin: 03/08/21 08:41 Dose: 150 mg Documented by: Clopidogrel Bisulfate (Clopidogrel 75 Mg Tab) 75 mg PO DAILY [facility] Last Admin: 03/08/21 08:42 Dose: 75 mg Documented by: Docusate Sodium (Docusate Sodium 100 Mg Cap) 100 mg PO BID [facility] Last Admin: 03/08/21 08:41 Dose: 100 mg Documented by: Ferrous Sulfate (Ferrous Sulfate 325 Mg Tab) 325 mg PO BIDMEALS [facility] Folic Acid (Folic Acid 1 Mg Tab) 1 mg PO DAILY [facility] Last Admin: 03/08/21 08:42 Dose: 1 mg Documented by: Gabapentin (Gabapentin 300 Mg Cap) 600 mg PO BID [facility] Last Admin: 03/08/21 08:42 Dose: 600 mg Documented by: Sodium Chloride (Normal Saline) 1,000 mls @ 125 mls/hr IV ASDIRECTED [facility] Potassium Chloride/Sodium Chloride (Normal Saline With 20 Meq Kcl) 1,000 mls @ 125 mls/hr IV ASDIRECTED [facility] Last Admin: 03/08/21 04:28 Dose: 125 mls/hr Documented by: Metoprolol Tartrate (Metoprolol Tartrate 25 Mg Tab) 25 mg PO BID [facility] Last Admin: 03/08/21 08:41 Dose: 25 mg Documented by: Morphine Sulfate (Morphine 2 Mg/Ml Syringe) 1 mg IVPUSH Q1H PRN PRN Reason: Breakthrough Pain Ondansetron HCl (Ondansetron 4 Mg/2 Ml Sdv) 4 mg IVPUSH Q6H PRN PRN Reason: Nausea/Vomiting Oxycodone/Acetaminophen (Acetaminophen/Oxycodone 325-5 Mg Tab) 1 - 2 tab PO Q4H PRN PRN Reason: Pain Pantoprazole Sodium (Pantoprazole 40 Mg Tab.Cr) 40 mg PO ACBREAKFAST [facility] Last Admin: 03/08/21 07:39 Dose: 40 mg Documented by: Prednisone (Prednisone 1 Mg Tab) 4 mg PO DAILY@0800 [facility] Last Admin: 03/08/21 07:38 Dose: 4 mg Documented by: Sodium Chloride (Sodium Chloride 0.9% 10 Ml Syringe) 10 ml FLUSH ASDIRECTED PRN PRN Reason: Keep Vein Open Triamterene/Hydrochlorothiazide (Hydrochlorothiazide/Triamterene 25-37.5 Tab) 1 each PO DAILY [facility] Last Admin: 03/08/21 08:42 Dose: 1 each Documented by: Discontinued Medications Bandage/Support Products (Nozin Nasal Emergency Management Program Specialist) 1 applic NASBOTH BID [facility] Last Admin: 03/07/21 08:01 Dose: 1 applic Documented by: Bupivacaine HCl (Bupivacaine 0.5% 30 Ml Sdv) Confirm Administered Dose 60 ml .ROUTE .STK-MED ONE Stop: 03/07/21 10:30 Cyclobenzaprine HCl (Cyclobenzaprine 10 Mg Tab) 5 mg PO BEDTIME [facility] Last Admin: 03/07/21 21:42 Dose: 5 mg Documented by: Cyclobenzaprine HCl (Cyclobenzaprine 10 Mg Tab) 5 mg PO ONETIME ONE Stop: 03/08/21 09:01 Last Admin: 03/08/21 09:19 Dose: 5 mg Documented by: Dexamethasone (Dexamethasone 4 Mg/Ml Sdv) Confirm Administered Dose 4 mg .ROUTE .STK-MED ONE Stop: 03/07/21 10:29 Dexamethasone (Dexamethasone 4 Mg/Ml Sdv) Confirm Administered Dose 4 mg .ROUTE .STK-MED ONE Stop: 03/07/21 12:02 Fentanyl (Fentanyl 100 Mcg/2 Ml Sdv) Confirm Administered Dose 100 mcg .ROUTE .STK-MED ONE Stop: 03/07/21 09:40 Glycopyrrolate (Glycopyrrolate 0.2 Mg/Ml 5 Ml Mdv) Confirm Administered Dose 1 mg .ROUTE .STK-MED ONE Stop: 03/07/21 10:29 Hydromorphone HCl (Hydromorphone 0.5 Mg/0.5 Ml Syringe) 0.5 mg IVPUSH ONETIME ONE Stop: 03/06/21 23:30 Last Admin: 03/06/21 23:38 Dose: 0.5 mg Documented by: Hydromorphone HCl (Hydromorphone 0.5 Mg/0.5 Ml Syringe) 0.5 mg IVPUSH Q2H PRN PRN Reason: Pain Last Admin: 03/07/21 10:52 Dose: 0.5 mg Documented by: Cefazolin Sodium/Dextrose 2 gm (/ Premix) 50 mls @ 100 mls/hr IV ONCALL ONE Stop: 03/07/21 08:29 Last Admin: 03/07/21 11:46 Dose: 100 mls/hr Documented by: Lactated Ringer's (Ringers, Lactated) 1,000 mls @ 75 mls/hr IV ASDIRECTED [facility] Last Admin: 03/07/21 17:33 Dose: 75 mls/hr Documented by: Cefazolin Sodium/Dextrose 1 gm (/ Premix) 50 mls @ 200 mls/hr IV Q8H [facility] Stop: 03/08/21 10:14 Last Admin: 03/08/21 09:45 Dose: 200 mls/hr Documented by: Neostigmine Methylsulfate (Neostigmine Methylsulfate 1 Mg/Ml 5 Ml Syringe) Confirm Administered Dose 5 mg .ROUTE .STK-MED ONE Stop: 03/07/21 10:29 Non-Formulary Medication (Methotrexate Sodium [Methotrexate]) 25 mg IJ Q7D [facility] Last Admin: 03/07/21 17:22 Dose: Not Given Documented by: Ondansetron HCl (Ondansetron 4 Mg/2 Ml Sdv) 4 mg IVPUSH ONETIME ONE Stop: 03/06/21 23:30 Last Admin: 03/06/21 23:38 Dose: 4 mg Documented by: Ondansetron HCl (Ondansetron 4 Mg/2 Ml Sdv) 4 mg IV Q4H PRN PRN Reason: Nausea/Vomiting Ondansetron HCl (Ondansetron 4 Mg/2 Ml Sdv) Confirm Administered Dose 4 mg .ROUTE .STK-MED ONE Stop: 03/07/21 10:29 Propofol (Propofol 200 Mg/20 Ml Sdv) Confirm Administered Dose 200 mg .ROUTE .STK-MED ONE Stop: 03/07/21 09:40 Rocuronium [place] (Rocuronium 50 Mg/5 Ml Vial) Confirm Administered Dose 50 mg .ROUTE .STK-MED ONE Stop: 03/07/21 10:29 Sodium Chloride (Sodium Chloride 0.9% 10 Ml Syringe) 10 ml FLUSH ASDIRECTED PRN PRN Reason: Keep Vein Open Last Admin: 03/06/21 23:39 Dose: 10 ml Documented by: Succinylcholine Chloride (Succinylcholine 200 Mg/10 Ml Mdv) Confirm Administered Dose 200 mg .ROUTE .STK-MED ONE Stop: 03/07/21 10:29 - Exam Wound/Incisions: Dressing Dry and Intact, Drainage (KIARA drain) General: Alert, Oriented, Cooperative, No Acute Distress, Mild Distress Extremities: Joint Swelling, Arm Pain (R shoulder ), Limited Range of Motion Skin: Dry, Intact Neurological: No New Focal Deficit Psy/Mental Status: Alert, Normal Affect, Normal Mood Sepsis Event Note - Evaluation Sepsis Screening Result: No Definite Risk - Focused Exam Vital Signs: Vital Signs Temp Pulse Pulse Resp BP BP Pulse Ox 03/08/21 08:41 90 106/61 03/08/21 07:00 95.6 F L 92 18 86/56 L 92 L 03/08/21 02:24 97.4 F 88 16 104/63 94 L - Problem List & Annotations (1) Postoperative anemia SNOMED Code(s): 392086269, 148585192 Code(s): D64.9 - ANEMIA, UNSPECIFIED Status: Acute Current Visit: Yes (2) Status post reverse arthroplasty of right shoulder SNOMED Code(s): 82916592300324390, 02914809159814107 Code(s): Z96.611 - PRESENCE OF RIGHT ARTIFICIAL SHOULDER JOINT Status: Acute Current Visit: Yes - Problem List Review Problem List Initiated/Reviewed/Updated: Yes - My Orders Last 24 Hours: Active Orders 24 hr Category Date Time Status Ambulate [RC] QID Care 03/07/21 15:36 Active Antiembolic Devices [RC] .Routine Care 03/07/21 15:37 Active Head of Bed Elevation [RC] ASDIRECTED Care 03/07/21 15:36 Active Intake and Output [RC] QSHIFT Care 03/07/21 15:36 Active May Shower [RC] ASDIRECTED Care 03/07/21 15:36 Active Neurovascular Check [RC] Q4H Care 03/07/21 15:36 Active Notify Provider Vital Signs [RC] ASDIRECTED Care 03/07/21 15:36 Active Pneumonia Education [RC] UPON Care 03/07/21 15:36 Active RT Incentive Spirometry [RC] Q1HWA Care 03/07/21 15:36 Active Up to Chair [RC] QID Care 03/07/21 15:36 Active VTE/DVT Education [RC] Click to Edit Care 03/07/21 15:37 Active Vital Signs [RC] PER UNIT ROUTINE Care 03/07/21 15:36 Active Wound Care [RC] Q12H Care 03/07/21 15:36 Active Consult to Case Management/Hook Tender [CONS] Cons 03/07/21 15:36 Active Routine OT Evaluation and Treatment [CONS] Routine Cons 03/07/21 15:36 Active PT Evaluation and Treatment [CONS] Routine Cons 03/07/21 15:36 Active PT Evaluation and Treatment [CONS] Routine Cons 03/07/21 15:36 Active Regular Diet [DIET] Diet 03/07/21 Lunch Active Acetaminophen [TylenoL] Med 03/07/21 15:36 Active 650 mg PO Q4H PRN Acetaminophen/HYDROcodone [[place] 325-5 MG] Med 03/07/21 15:36 Active 1 tab PO Q4H PRN Acetaminophen/oxyCODONE [Percocet 325-5 MG] Med 03/07/21 15:36 Active 1 - 2 tab PO Q4H PRN Alendronate [Fosamax] Med 03/20/21 06:00 Active 70 mg PO Aguirre@0600 Clopidogrel [Plavix] Med 03/08/21 09:00 Active 75 mg PO DAILY Docusate Sodium [Colace] Med 03/07/21 21:00 Active 100 mg PO BID Ferrous Sulfate Med 03/08/21 17:00 Ordered 325 mg PO BIDMEALS Folic Acid Med 03/08/21 09:00 Active 1 mg PO DAILY Gabapentin [Neurontin] Med 03/07/21 21:00 Active 600 mg PO BID Morphine Med 03/07/21 15:36 Active 1 mg IVPUSH Q1H PRN NS + KCl 20mEq/L [Normal Saline with 20 mEq KCl] 1,000 Med 03/07/21 16:00 Active ml IV ASDIRECTED Nozin [ Nasal Emergency Management Program Specialist] Med 03/07/21 21:00 Active 1 applic NASBOTH BID Ondansetron [Zofran] Med 03/07/21 15:36 Active 4 mg IVPUSH Q6H PRN Pantoprazole [ProTONIX] Med 03/08/21 07:30 Active 40 mg PO ACBREAKFAST Sodium Chloride 0.9% [Normal Saline] 1,000 ml Med 03/07/21 15:45 Active IV ASDIRECTED atorvaSTATin [Lipitor] Med 03/07/21 21:00 Active 20 mg PO BEDTIME buPROPion [Wellbutrin SR] Med 03/07/21 21:00 Active 150 mg PO BID predniSONE Med 03/08/21 08:00 Active 4 mg PO DAILY@0800 Antiembolic Hose [OM.PC] Routine Oth 03/07/21 15:36 Ordered DVT/VTE Prophylaxis Reflex [OM.PC] Routine Oth 03/07/21 15:36 Ordered Ice Therapy [OM.PC] Per Unit Routine Oth 03/07/21 15:36 Ordered Medication Continuation Instructions [OM.PC] Per Unit Oth 03/07/21 15:36 Ordered Routine Oral Care [OM.PC] Routine Oth 03/07/21 15:36 Ordered Sequential Compression Device [OM.PC] Routine Oth 03/07/21 15:36 Ordered Medication Orders Acetaminophen (Acetaminophen 325 Mg Tab) 650 mg PO Q4H PRN PRN Reason: Pain/Fever Hydrocodone Bitart/Acetaminophen (Acetaminophen/Hydrocodone 325-5 Mg Tab) 1 tab PO Q4H PRN PRN Reason: Pain (mild 1-3) Last Admin: 03/08/21 11:34 Dose: 1 tab Documented by: Admin: 03/08/21 06:51 Dose: 1 tab Documented by: Admin: 03/07/21 17:32 Dose: 1 tab Documented by: ANAND Alendronate Sodium (Alendronate 70 Mg Tab) 70 mg PO Aguirre@0600 [facility] Atorvastatin Calcium (Atorvastatin 20 Mg Tab) 20 mg PO BEDTIME [facility] Last Admin: 03/07/21 21:41 Dose: 20 mg Documented by: MARLA Bandage/Support Products (Nozin Nasal Emergency Management Program Specialist) 1 applic NASBOTH BID [facility] Last Admin: 03/08/21 08:41 Dose: 1 applic Documented by: Admin: 03/07/21 21:39 Dose: 1 applic Documented by: MARLA Bupropion HCl (Bupropion 150 Mg Tab.Sr) 150 mg PO BID [facility] Last Admin: 03/08/21 08:41 Dose: 150 mg Documented by: Admin: 03/07/21 21:42 Dose: 150 mg Documented by: MARLA Clopidogrel Bisulfate (Clopidogrel 75 Mg Tab) 75 mg PO DAILY [facility] Last Admin: 03/08/21 08:42 Dose: 75 mg Documented by: HERNAN Docusate Sodium (Docusate Sodium 100 Mg Cap) 100 mg PO BID [facility] Last Admin: 03/08/21 08:41 Dose: 100 mg Documented by: Admin: 03/07/21 21:39 Dose: 100 mg Documented by: MARLA Ferrous Sulfate (Ferrous Sulfate 325 Mg Tab) 325 mg PO BIDMEALS [facility] Folic Acid (Folic Acid 1 Mg Tab) 1 mg PO DAILY [facility] Last Admin: 03/08/21 08:42 Dose: 1 mg Documented by: HERNAN Gabapentin (Gabapentin 300 Mg Cap) 600 mg PO BID [facility] Last Admin: 03/08/21 08:42 Dose: 600 mg Documented by: Admin: 03/07/21 21:42 Dose: 600 mg Documented by: MARLA Sodium Chloride (Normal Saline) 1,000 mls @ 125 mls/hr IV ASDIRECTED [facility] Potassium Chloride/Sodium Chloride (Normal Saline With 20 Meq Kcl) 1,000 mls @ 125 mls/hr IV ASDIRECTED [facility] Last Admin: 03/08/21 04:28 Dose: 125 mls/hr Documented by: Infusion: 03/08/21 01:38 Dose: 125 mls/hr Documented by: Admin: 03/07/21 17:38 Dose: 125 mls/hr Documented by: ANAND Metoprolol Tartrate (Metoprolol Tartrate 25 Mg Tab) 25 mg PO BID [facility] Last Admin: 03/08/21 08:41 Dose: 25 mg Documented by: Admin: 03/07/21 21:42 Dose: 25 mg Documented by: Admin: 03/07/21 09:46 Dose: Not Given Documented by: ANAND Morphine Sulfate (Morphine 2 Mg/Ml Syringe) 1 mg IVPUSH Q1H PRN PRN Reason: Breakthrough Pain Ondansetron HCl (Ondansetron 4 Mg/2 Ml Sdv) 4 mg IVPUSH Q6H PRN PRN Reason: Nausea/Vomiting Oxycodone/Acetaminophen (Acetaminophen/Oxycodone 325-5 Mg Tab) 1 - 2 tab PO Q4H PRN PRN Reason: Pain Pantoprazole Sodium (Pantoprazole 40 Mg Tab.Cr) 40 mg PO ACBREAKFAST [facility] Last Admin: 03/08/21 07:39 Dose: 40 mg Documented by: HERNAN Prednisone (Prednisone 1 Mg Tab) 4 mg PO DAILY@0800 [facility] Last Admin: 03/08/21 07:38 Dose: 4 mg Documented by: HERNAN Sodium Chloride (Sodium Chloride 0.9% 10 Ml Syringe) 10 ml FLUSH ASDIRECTED PRN PRN Reason: Keep Vein Open Triamterene/Hydrochlorothiazide (Hydrochlorothiazide/Triamterene 25-37.5 Tab) 1 each PO DAILY [facility] Last Admin: 03/08/21 08:42 Dose: 1 each Documented by: Admin: 03/07/21 09:47 Dose: Not Given Documented by: ANAND - Assessment Assessment (Free Text/Narrative):: Patient is a pleasant 75 y/o female, s/p right reverse total shoulder arthroplasty, POD #1. Patient tolerated surgery well. No acute events overnight. Has been hypotensive intermittently through the day, has some dizziness with transfers from sit to stand. Was on 3L O2 following surgery, has since been weaned to RA and maintaining oxygen saturations >90%. Patient had difficulty with pain control when the block wore off. Since then, has been getting adequate pain control with Percocet and Flexeril. Tolerating regular diet well. No nausea or emesis. Labs reviewed; POD#1 HgB at 7.4 (delta 2.7). Is having some dizziness with transfers. Denied fatigue, lightheadedness, nor dizziness. Potassium improved to 4.3 today after potassium replacement yesterday following surgery. Calcium is trending down at 7.7; is asymptomatic with this. Will continue to monitor. Worked with physical therapy, did not have any orthostatic hypotension with this. Performed ambulation, in addition to AROM at L elbow and wrist + PROM to shoulder. Patient tolerated this well. Patient continues to require inpatient status at this time, as she requires post-operative vital assessment with her postoperative anemia and hypotension. Additionally, needs adequate pain control with PO medications prior to discharge home. Exam: Sling on L UE. L UE neurovascular intact. Bruising along left breast and upper extremity. Very mild warmth to left shoulder. Mild edema of shoulder, elbow, and wrist. Incision healing nicely, steristrips above. No surrounding erythema nor active drainage. KIARA drain pulled and new dressing applied to L UE this afternoon. ROM at shoulder not assessed. Plan: * Discussed postoperative anemia with patient; options include transfusion or close monitoring/time with iron supplements. Patient would like to avoid transfusion. Continue to monitor for orthostatic hypotension. Iron supplement added to orders. If continues to have dizziness with sit to stand transfers, will recheck CBC tomorrow * Continue q4hr vital assessment. Continue maintenance fluids for hypotension; decreased rate from 125 mls/hr to 100 mls/hr * KIARA drain pulled and dressing changed by orthopedic provider this afternoon * Will continue with daily physical therapy while in the hospital * Anticipate discharge to home when medically stable and pain is controlled with PO medications
[2021-03-08] MEDS: Acetaminophen/oxyCODONE 325-5 MG Tab PO PRN ×2 (15:47→21:26)
[2021-03-08] MEDS: Ferrous Sulfate 325 MG Tab PO SCH (18:03)
[2021-03-08] MEDS: atorvaSTATin 20 MG Tab PO SCH (21:25)
[2021-03-09] MEDS: Acetaminophen/oxyCODONE 325-5 MG Tab PO PRN ×4 (01:29→19:52)
[2021-03-09] MEDS: NS + KCl 20mEq/L 1,000 ML IV SCH (01:30)
[2021-03-09] MEDS: Pantoprazole 40 MG Tab.CR PO SCH (07:52)
[2021-03-09] MEDS: Ferrous Sulfate 325 MG Tab PO SCH ×2 (07:52→16:38)
[2021-03-09] MEDS: predniSONE 1 MG Tab PO SCH (07:52)
[2021-03-09] MEDS: Folic Acid 1 MG Tab PO SCH (09:36)
[2021-03-09] MEDS: Clopidogrel 75 MG Tab PO SCH (09:36)
[2021-03-09] MEDS: Gabapentin 300 MG Cap PO SCH (09:36)
[2021-03-09] MEDS: buPROPion 150 MG Tab.SR PO SCH (09:36)
[2021-03-09] MEDS: Hydrochlorothiazide/Triamterene 25-37.5 Tab PO SCH (09:36)
[2021-03-09] MEDS: Docusate Sodium 100 MG Cap PO SCH (09:36)
[2021-03-09] MEDS: Metoprolol Tartrate 25 MG Tab PO SCH (09:36)
[2021-03-09] MEDS: Nozin Nasal Sanitizer NASBOTH SCH (09:37)
--- NOTE | 2021-03-09 19:40 | PCM.DCSUM1 ---
Discharge Summary - Hospital Course HPI Initial Comments: Patient is a pleasant 75 y/o female, fell into frie on March 03 and had immediate pain and deformity to her shoulder. Presented to ER for workup, which revealed a proximal humerus fracture. Ortho services was consulted; unable to do a surgical repair until Sunday the following week. Discussed options with patient of transferring care to [facility] for surgery sooner, but she preferred to stay closer to home. Was discharged from ED in sling and with [place] for pain control. Underwent pre-op assessment by Dr. Rosales on SundayMarch 04 and was cleared for surgery. Patient was seen in ER and admitted late Sunday evening due to inadequate pain control. Underwent surgery on Sunday; had a right reverse total shoulder arthroplasty. Procedure went well without complications. Diagnosis: Stroke: No Modified Roc Scale: No Symptoms at All Modified [place] Scale Score: 0 - Discharge Data Discharge Date: 03/09/21 Discharge Disposition: Home, Home Health Agency Condition: Good - Referral to Home Health Date of Face to Face Encounter: 03/09/21 Reason for Homebound Status: motivated to go home Primary Care Physician: Reggie Rosales MD Skilled Need: home health, dressing changes, physical therapy - Discharge Diagnosis/Problem(s) (1) Postoperative anemia SNOMED Code(s): 677508191, [id number] ICD Code: D64.9 - ANEMIA, UNSPECIFIED Status: Acute Current Visit: Yes (2) Status post reverse arthroplasty of right shoulder SNOMED Code(s): 04089776699362766, [id number] ICD Code: Z96.611 - PRESENCE OF RIGHT ARTIFICIAL SHOULDER JOINT Status: Acute Current Visit: Yes - Patient Summary/Data Operative Procedure(s) Performed: right reverse total shoulder arthroplasty Consults: Consultations 03/07/21 15:36 Consult to Case Management/Hydraulic Plumber [CONS] Routine Comment: Physician Instructions: Service(s) to be Consulted: Case Management Reason for Consult: Plan for Discharge Special Instructions: s/p R reverse TSA anticipate discharge to home, possibly home health pending progress OT Evaluation and Treatment [CONS] Routine Please Evaluate and Treat. OT Reason for Consult: ADLs Special Instructions: s/p reverse TSA This query below is only for informational purposes and is not editable. Admission Diagnosis/Problem: Pain PT Evaluation and Treatment [CONS] Routine Please Evaluate and Treat. PT Reason for Consult: Post op Ortho Surgery Knee Pending Discharge: Yes, 1- 2 days Special Instructions: Schedule first outpatient PT appointment in 3-5 day post discharge. This query below is only for informational purposes and is not editable. Admission Diagnosis/Problem: Pain PT Evaluation and Treatment [CONS] Routine Please Evaluate and Treat. PT Reason for Consult: s/p R reverse TSA Special Instructions: okay to work active ROM to elbow and wirst PROM to shoulder, no flexion or rotation past neutral This query below is only for informational purposes and is not editable. Admission Diagnosis/Problem: Pain Hospital Course: Patient is a pleasant 75 y/o female, fell into sune on March 03 and had immediate pain and deformity to her shoulder. Presented to ER for workup, which revealed a proximal humerus fracture. Ortho services was consulted; unable to do a surgical repair until Sunday the following week. Discussed options with patient of transferring care to [facility] for surgery sooner, but she preferred to stay closer to home. Was discharged from ED in sling and with [place] for pain control. Underwent pre-op assessment by Dr. Rosales on SundayMarch 04 and was cleared for surgery. Patient was seen in ER and admitted late Sunday evening due to inadequate pain control. Underwent surgery on Sunday; had a right reverse total shoulder arthroplasty. Procedure went well without complications. POD#1 Hgb was 7.4. Patient was dizzy with sit/stand transitions and hypotensive. Other vitals within normal limits. Discussed transfusion with patient, which she declined. Was agreeable to iron supplements. Blood pressure improved on POD #2 and denied dizziness with sit/stand transitions. Patient had difficulty with pain control after the block wore off; by the afternoon of POD#1, pain was well controlled with Percocet and a prn Flexeril. Tolerated regular diet well. Denied nausea/emesis. Patient worked with PT and OT daily. Was compliant with R shoulder sling th roughout stay. Worked on AROM at elbow and wrist + finger/printer assistant strength, and PROM to shoulder. Ambulated safely without orthostatic hypotension on POD#2. Demonstrated ability to complete ADLs in sling with minimal assistance. Was able to shower POD #2, standby assist for safety, but patient tolerated well without dizziness. KIARA drain removed and dressing changed POD #1. IV Saline locked POD #2. Exam: R UE neurovascular intact. R shoulder incision healing well; dried steristrips above incision. No surrounding erythema nor active drainage. Mild warmth to touch of R shoulder. Significant swelling of R UE and ecchymosis over breast, shoulder, and upper arm. Swelling extends into the digits 1-5. Decreased printer assistant strength due to swelling. - Patient Instructions Diet: Usual Diet as Tolerated Activity: Apply Ice, Rest and Relax Today Driving: Do Not Drive (while on opioid medication ) Showering/Bathing: Shower in AM Wound/Incision Care: Keep Operative Site/Wound Site Clean and Dry, Change Dressing Daily Notify Provider of: Fever, Increased Pain, Swelling and Redness, Drainage - Discharge Plan *PRESCRIPTION DRUG MONITORING PROGRAM REVIEWED*: Not Applicable *COPY OF PRESCRIPTION DRUG MONITORING REPORT IN PATIENT LASHANDA: Not Applicable Prescriptions/Med Rec: Ferrous Sulfate [Iron] 325 mg PO DAILY #14 tablet Acetaminophen/oxyCODONE [Percocet 325-5 MG] 1 - 2 each PO Q6HR PRN 7 Days #30 tab PRN Reason: Pain Home Medications: Home Meds Folic Acid 1 mg PO DAILY 02/11/14 [History] Meloxicam [Mobic] 7.5 mg PO BID 02/11/14 [History] Omeprazole 20 mg PO DAILY 02/11/14 [History] Simvastatin [Zocor] 40 mg PO BEDTIME 02/11/14 [History] Alendronate [Fosamax] 70 mg PO Q7D@0600 12/02/14 [History] Calcium Carb/Vit D3/Minerals [Calcium 600+D Plus Minerals] 2 tab PO DAILY 12/02/14 [History] Gabapentin 600 mg PO BID 12/02/14 [History] Multivitamin with Minerals [Multiple Vitamin] 1 tab PO DAILY 12/02/14 [History] buPROPion HCL [Wellbutrin SR] 150 mg PO BID 12/02/14 [History] metHOTREXate sodium [Methotrexate] 25 mg IJ Q7D 11/05/15 [History] Metoprolol Tartrate [Lopressor] 25 mg PO BID 06/09/16 [History] Triamterene/Hydrochlorothiazid [Triamterene-HCTZ 37.5-25 MG] 1 tab PO DAILY 06/09/16 [History] predniSONE [Jay] 4 mg PO DAILY 05/06/18 [History] Glucosam/Chond-Msm1/C/Lul/Bor [Onjcecm-Hhgtt-GJZ Complex Cplt] 1 tab PO DAILY 06/27/18 [History] predniSONE [Prednisone] 15 mg PO DAILY PRN 06/27/18 [History] Acetaminophen [Tylenol Extra Strength] 1,000 mg PO BID 08/25/18 [History] Aspirin [Maikel Chewable] 81 mg PO DAILY 03/04/21 [History] Clopidogrel [Plavix] 75 mg PO DAILY 03/04/21 [History] Cyclobenzaprine [Flexeril] 5 mg PO BEDTIME 03/04/21 [History] Hydrocodone/Acetaminophen [Hydrocodon-Acetaminophen 5-325] 1 tab PO Q6H PRN 03/06/21 [History] Acetaminophen/oxyCODONE [Percocet 325-5 MG] 1 - 2 each PO Q6HR PRN 7 Days #30 tab 03/09/21 [Rx] Ferrous Sulfate [Iron] 325 mg PO DAILY #14 tablet 03/09/21 [Rx] Oxygen Therapy Mode: Room Air Patient Handouts: Shoulder Joint Replacement, Care After, Preventing Problems After Surgery, Preventing Constipation After Surgery Referrals: Neva Pacheco PA [Ordering Only Provider] - 03/22/21 10:00 am (Please arrive 15 minutes early to register for your appointment. Please register at the ER desk) - Discharge Summary/Plan Comment DC Time >30 min.: No Discharge Summary/Plan Comment: * Patient hemodynamically stable at time of discharge; blood pressure improved to 112/70 and has not had dizziness or orthostatic hypotension with activity today. * Patient declined transfusion; agreeable to iron supplements. Script sent to patients preferred pharmacy. Educated on postoperative anemia; if she develops significant lightheadedness, dizziness, shortness of breath, should return to ER for evaluation. * Orders completed for home health & home PT. Does have friends and son staying with her for the first few days upon discharge. * Pain control: prescription for 5mg-325mg Percocet sent to patients preferred pharmacy. * Patient may keep sling on, okay to have off at rest. Encouraged to work AROM at fingers, wrist, and elbow. Okay to work PROM to shoulder, no heavy lifting or AROM past neutral. * Reviewed SSI signs with patient; she expressed understanding and return parameters. * Follow up with ortho clinic in 2 weeks; encouraged to call with any concerns or questions that arise prior to scheduled apt. - General Info Date of Service: 03/09/21 Admission Dx/Problem (Free Text: right proximal humerus fracture Functional Status: Reports: Pain Controlled, Tolerating Diet, Ambulating, Urinating - Review of Systems General: Reports: No Symptoms HEENT: Reports: No Symptoms Pulmonary: Reports: No Symptoms Cardiovascular: Reports: No Symptoms Gastrointestinal: Reports: No Symptoms Genitourinary: Reports: No Symptoms Musculoskeletal: Reports: Shoulder Pain (R), Joint Pain (R shoulder ), Joint Swelling Skin: Reports: Bruising Neurological: Reports: No Symptoms Psychiatric: Reports: No Symptoms - Patient Data Vitals - Most Recent: Last Vital Signs Temp 96.3 F L 03/09/21 14:43 Pulse 74 03/09/21 14:43 Resp 16 03/09/21 14:43 BP 112/70 03/09/21 14:43 Pulse Ox 95 03/09/21 14:43 Orthostatic Blood Pressure [ 99/63 Supine] Orthostatic Blood Pressure [ 155/89 Standing] Orthostatic Blood Pressure [ 79/51 Sitting] Weight - Most Recent: 156 lb I&O - Last 24 hours: Intake & Output 03/09/21 03/09/21 03/09/21 06:59 14:59 22:59 Intake Total 2062 120 1350 Output Total 950 800 Balance 1112 120 550 Med Orders - Current: Current Medications Acetaminophen (Acetaminophen 325 Mg Tab) 650 mg PO Q4H PRN PRN Reason: Pain/Fever Hydrocodone Bitart/Acetaminophen (Acetaminophen/Hydrocodone 325-5 Mg Tab) 1 tab PO Q4H PRN PRN Reason: Pain (mild 1-3) Last Admin: 03/08/21 11:34 Dose: 1 tab Documented by: Alendronate Sodium (Alendronate 70 Mg Tab) 70 mg PO Aguirre@0600 [facility] Atorvastatin Calcium (Atorvastatin 20 Mg Tab) 20 mg PO BEDTIME [facility] Last Admin: 03/08/21 21:25 Dose: 20 mg Documented by: Bandage/Support Products (Nozin Nasal Maintenance Chief) 1 applic NASBOTH BID [facility] Last Admin: 03/09/21 09:37 Dose: 1 applic Documented by: Bupropion HCl (Bupropion 150 Mg Tab.Sr) 150 mg PO BID [facility] Last Admin: 03/09/21 09:36 Dose: 150 mg Documented by: Clopidogrel Bisulfate (Clopidogrel 75 Mg Tab) 75 mg PO DAILY [facility] Last Admin: 03/09/21 09:36 Dose: 75 mg Documented by: Docusate Sodium (Docusate Sodium 100 Mg Cap) 100 mg PO BID [facility] Last Admin: 03/09/21 09:36 Dose: 100 mg Documented by: Ferrous Sulfate (Ferrous Sulfate 325 Mg Tab) 325 mg PO BIDMEALS [facility] Last Admin: 03/09/21 16:38 Dose: 325 mg Documented by: Folic Acid (Folic Acid 1 Mg Tab) 1 mg PO DAILY [facility] Last Admin: 03/09/21 09:36 Dose: 1 mg Documented by: Gabapentin (Gabapentin 300 Mg Cap) 600 mg PO BID [facility] Last Admin: 03/09/21 09:36 Dose: 600 mg Documented by: Potassium Chloride/Sodium Chloride (Normal Saline With 20 Meq Kcl) 1,000 mls @ 100 mls/hr IV ASDIRECTED [facility] Last Admin: 03/09/21 01:30 Dose: 100 mls/hr Documented by: Metoprolol Tartrate (Metoprolol Tartrate 25 Mg Tab) 25 mg PO BID [facility] Last Admin: 03/09/21 09:36 Dose: 25 mg Documented by: Morphine Sulfate (Morphine 2 Mg/Ml Syringe) 1 mg IVPUSH Q1H PRN PRN Reason: Breakthrough Pain Ondansetron HCl (Ondansetron 4 Mg/2 Ml Sdv) 4 mg IVPUSH Q6H PRN PRN Reason: Nausea/Vomiting Oxycodone/Acetaminophen (Acetaminophen/Oxycodone 325-5 Mg Tab) 1 - 2 tab PO Q4H PRN PRN Reason: Pain Last Admin: 03/09/21 14:50 Dose: 2 tab Documented by: Pantoprazole Sodium (Pantoprazole 40 Mg Tab.Cr) 40 mg PO ACBREAKFAST [facility] Last Admin: 03/09/21 07:52 Dose: 40 mg Documented by: Prednisone (Prednisone 1 Mg Tab) 4 mg PO DAILY@0800 [facility] Last Admin: 03/09/21 07:52 Dose: 4 mg Documented by: Sodium Chloride (Sodium Chloride 0.9% 10 Ml Syringe) 10 ml FLUSH ASDIRECTED PRN PRN Reason: Keep Vein Open Triamterene/Hydrochlorothiazide (Hydrochlorothiazide/Triamterene 25-37.5 Tab) 1 each PO DAILY [facility] Last Admin: 03/09/21 09:36 Dose: 1 each Documented by: Discontinued Medications Bandage/Support Products (Nozin Nasal Maintenance Chief) 1 applic NASBOTH BID [facility] Last Admin: 03/07/21 08:01 Dose: 1 applic Documented by: Bupivacaine HCl (Bupivacaine 0.5% 30 Ml Sdv) Confirm Administered Dose 60 ml .ROUTE .STK-MED ONE Stop: 03/07/21 10:30 Cyclobenzaprine HCl (Cyclobenzaprine 10 Mg Tab) 5 mg PO BEDTIME [facility] Last Admin: 03/07/21 21:42 Dose: 5 mg Documented by: Cyclobenzaprine HCl (Cyclobenzaprine 10 Mg Tab) 5 mg PO ONETIME ONE Stop: 03/08/21 09:01 Last Admin: 03/08/21 09:19 Dose: 5 mg Documented by: Dexamethasone (Dexamethasone 4 Mg/Ml Sdv) Confirm Administered Dose 4 mg .ROUTE .STK-MED ONE Stop: 03/07/21 10:29 Dexamethasone (Dexamethasone 4 Mg/Ml Sdv) Confirm Administered Dose 4 mg .ROUTE .STK-MED ONE Stop: 03/07/21 12:02 Fentanyl (Fentanyl 100 Mcg/2 Ml Sdv) Confirm Administered Dose 100 mcg .ROUTE .STK-MED ONE Stop: 03/07/21 09:40 Glycopyrrolate (Glycopyrrolate 0.2 Mg/Ml 5 Ml Mdv) Confirm Administered Dose 1 mg .ROUTE .STK-MED ONE Stop: 03/07/21 10:29 Hydromorphone HCl (Hydromorphone 0.5 Mg/0.5 Ml Syringe) 0.5 mg IVPUSH ONETIME ONE Stop: 03/06/21 23:30 Last Admin: 03/06/21 23:38 Dose: 0.5 mg Documented by: Hydromorphone HCl (Hydromorphone 0.5 Mg/0.5 Ml Syringe) 0.5 mg IVPUSH Q2H PRN PRN Reason: Pain Last Admin: 03/07/21 10:52 Dose: 0.5 mg Documented by: Cefazolin Sodium/Dextrose 2 gm (/ Premix) 50 mls @ 100 mls/hr IV ONCALL ONE Stop: 03/07/21 08:29 Last Admin: 03/07/21 11:46 Dose: 100 mls/hr Documented by: Lactated Ringer's (Ringers, Lactated) 1,000 mls @ 75 mls/hr IV ASDIRECTED [facility] Last Admin: 03/07/21 17:33 Dose: 75 mls/hr Documented by: Sodium Chloride (Normal Saline) 1,000 mls @ 125 mls/hr IV ASDIRECTED [facility] Cefazolin Sodium/Dextrose 1 gm (/ Premix) 50 mls @ 200 mls/hr IV Q8H [facility] Stop: 03/08/21 10:14 Last Admin: 03/08/21 09:45 Dose: 200 mls/hr Documented by: Neostigmine Methylsulfate (Neostigmine Methylsulfate 1 Mg/Ml 5 Ml Syringe) Confirm Administered Dose 5 mg .ROUTE .STK-MED ONE Stop: 03/07/21 10:29 Non-Formulary Medication (Methotrexate Sodium [Methotrexate]) 25 mg IJ Q7D [facility] Last Admin: 03/07/21 17:22 Dose: Not Given Documented by: Ondansetron HCl (Ondansetron 4 Mg/2 Ml Sdv) 4 mg IVPUSH ONETIME ONE Stop: 03/06/21 23:30 Last Admin: 03/06/21 23:38 Dose: 4 mg Documented by: Ondansetron HCl (Ondansetron 4 Mg/2 Ml Sdv) 4 mg IV Q4H PRN PRN Reason: Nausea/Vomiting Ondansetron HCl (Ondansetron 4 Mg/2 Ml Sdv) Confirm Administered Dose 4 mg .ROUTE .STK-MED ONE Stop: 03/07/21 10:29 Propofol (Propofol 200 Mg/20 Ml Sdv) Confirm Administered Dose 200 mg .ROUTE .STK-MED ONE Stop: 03/07/21 09:40 Rocuronium Idalia (Rocuronium 50 Mg/5 Ml Vial) Confirm Administered Dose 50 mg .ROUTE .STK-MED ONE Stop: 03/07/21 10:29 Sodium Chloride (Sodium Chloride 0.9% 10 Ml Syringe) 10 ml FLUSH ASDIRECTED PRN PRN Reason: Keep Vein Open Last Admin: 03/06/21 23:39 Dose: 10 ml Documented by: Succinylcholine Chloride (Succinylcholine 200 Mg/10 Ml Mdv) Confirm Administered Dose 200 mg .ROUTE .STK-MED ONE Stop: 03/07/21 10:29 - Exam General: Reports: Alert, Oriented, Cooperative, No Acute Distress Extremities: Normal Capillary Refill, Joint Swelling, Arm Pain, Limited Range of Motion Skin: Reports: Dry, Intact Wound/Incisions: Reports: Healing Well, Dressing Dry and Intact, No Drainage Neurological: Reports: No New Focal Deficit Psy/Mental Status: Reports: Alert, Normal Affect, Normal Mood
[2021-03-09 19:51] VITALS: BP 118/73; PULSE 80
[2021-03-20] MEDS ORDERED: Alendronate 70 MG Tab PO SCH (06:00)
--- NOTE | 2021-03-21 12:16 | OR ---
DATE OF PROCEDURE: 03/07/2021 SURGEON: Donta Ashby MD PREOPERATIVE DIAGNOSIS: Comminuted 4-part fracture of right proximal humerus. POSTOPERATIVE DIAGNOSIS: Comminuted 4-part fracture of right proximal humerus. PROCEDURE PERFORMED: Reverse total shoulder arthroplasty, right shoulder, using Lam trabecular metal components with a 36 mm Glenosphere, 10 mm stem, and +6 mm polyethylene. HIGH SCHOOL LEARNING SUPPORT TEACHER: ROSEMARY Salcedo ANESTHESIA: Interscalene block with general. INDICATIONS: Anali is a 75-year-old female who sustained a fall resulting in a displaced 4- part fracture of the proximal humerus. She now presents for right total shoulder arthroplasty. Risks, benefits, and potential complications of the procedure including limitations associated with the arthroplasty were discussed. Physician real estate administrative assistant was utilized during the case for retraction, exposure, manipulation of the arm, and closure. DESCRIPTION OF PROCEDURE: After adequate anesthesia was obtained, the patient was placed in a modified beach chair position. The right shoulder and arm were prepped and draped in a sterile fashion. An anterior incision was made and carried down through the subcutaneous tissues. Hemostasis was obtained with electrocautery. The deltopectoral interval was identified. The cephalic vein was retracted laterally with the deltoid. The clavipectoral fascia was divided, and a self-retaining retractor was placed beneath the conjoined tendon and deltoid. The fracture was immediately identified with the humeral head impacted 90 degrees out of position. The head was elevated off the shaft and removed as a free fragment. The subscapularis tendon was identified, and a small fragment of lesser tuberosity attached to it was retained. A #2 Ethibond suture was placed through the tendon near its insertion and used to retract it medially. Bone fragments were removed. A portion of the greater tuberosity still attached to the rotator cuff was preserved and debulked. All loose fragments were removed. The canal was sequentially broached initially to a size 10, and the 10 trial was placed. The trial was removed, and attention was turned to the glenoid. Retractors were placed, and the biceps was divided. The glenoid labrum was resected, and the anterior, posterior, and inferior aspects of the glenoid were delineated. A guide was placed with the inferior portion aligned with the inferior extent of the glenoid, and a guide pin was drilled. The guide was removed. A drill was placed over the guide pin. The pin was removed, and the glenoid was then reamed, removing the articular cartilage. This was irrigated, and a combination of rongeur and a curette was used to complete preparation of the glenoid. A larger reamer was placed for the central peg, and the baseplate was tapped into position. This was confirmed to be seated, and 2 locking screws were placed 30 mm in length, and locking caps were secured in position. The Glenosphere was then tapped into position over the baseplate and the position confirmed. Attention was returned to the humerus. The trial was placed and found to be unstable with insufficient portion of the trabecular metal engaging the humerus, and decision were made to proceed with a cemented stem. The canal was irrigated. A plastic cement restrictor was placed. The canal was irrigated once again. The canal was dried, and cement was then placed in a retrograde fashion. The stem was then inserted. Excess cement was removed, and the stem was held in position as the cement cured. Trial reductions were then done with a +6 mm providing excellent tension and stability. The trial was removed, and the final polyethylene was tapped into position. The shoulder was reduced and irrigated. Drill holes had been placed in the shaft prior to cementing the stem for placement of sutures. The lesser tuberosity was repaired back over the stem after morselizing a portion of the humeral head and placing it over the trabecular metal and securing the lesser tuberosity in position. A portion of the greater tuberosity could also be approximated. This was also sutured in position. The shoulder was irrigated including dilute Betadine solution. A drain was placed and brought out through a separate stab incision. The skin was closed with 2-0 Vicryl and a running 3-0 Monocryl. Steri-Strips were applied. Sterile dressing was then placed. The patient tolerated the procedure very well. There were no complications. She was taken from the operating room in stable condition. Donta Ashby MD /[id number] CINDY
== END 2021-03-09 20:04 | disposition home health service (06) | DRG 483 ==
LOC: JP.ED 22:37 → JP.MS 03-07 00:16
PROVIDERS: ADMIT Family Medicine; ATTEND Family Medicine
PROC: 0RRJ00Z Replacement of Right Shoulder Joint with Reverse Ball and Socket Synthetic Substitute, Open Approach (ICD-10-PCS; principal; 2021-03-07)
DX: S42.201A Unspecified fracture of upper end of right humerus, initial encounter for closed fracture (principal); X58.XXXA Exposure to other specified factors, initial encounter; M06.9 Rheumatoid arthritis, unspecified; H54.7 Unspecified visual loss; E78.00 Pure hypercholesterolemia, unspecified; I73.9 Peripheral vascular disease, unspecified; E78.5 Hyperlipidemia, unspecified; K21.9 Gastro-esophageal reflux disease without esophagitis; G89.29 Other chronic pain; M54.9 Dorsalgia, unspecified; M19.90 Unspecified osteoarthritis, unspecified site; Z85.828 Personal history of other malignant neoplasm of skin; Z95.5 Presence of coronary angioplasty implant and graft; F17.210 Nicotine dependence, cigarettes, uncomplicated; Z88.0 Allergy status to penicillin; Z88.1 Allergy status to other antibiotic agents; Z88.5 Allergy status to narcotic agent; Z79.02 Long term (current) use of antithrombotics/antiplatelets; Z79.82 Long term (current) use of aspirin; Z79.52 Long term (current) use of systemic steroids; Z79.899 Other long term (current) drug therapy
CPT/HCPCS: 36415; 80053; 85025; J1170; J2405; 80048; 85027; 86850; 86900; 86901; 96374; 96375; 97110-GP; 97162-GP; 97165-GO; 97530-GP; 97535-GP; 99284; 99284-25; A9270-GY; C1713; C1776; J0330; J0690; J1100; J2704; J2710; J3010; J3480; J3490; J7120; J7512

== ENCOUNTER 2021-11-11 12:40 | Emergency (ER) | payer MEDICARE, BC ==
[2021-11-11] MEDS ORDERED: Sodium Chloride 0.9% 10 ML Syringe FLUSH PRN ×2 (13:09→13:58)
[2021-11-11] MEDS ORDERED: Iopamidol 755 Mg/ML 100 ML Bottle IV SCH (14:00)
[2021-11-11] MEDS ORDERED: Sodium Chloride 0.9% 100 ML IV SCH (14:00)
[2021-11-11] MEDS ORDERED: Ketorolac 30 MG/ML SDV IVPUSH ONE (15:28)
[2021-11-11] MEDS ORDERED: HYDROmorphone 0.5 MG/0.5 ML Syringe IVPUSH ONE (15:29)
[2021-11-11 16:20] VITALS: BP 131/77; PULSE 61
== END 2021-11-11 16:21 | disposition home or self-care (01) ==
LOC: JP.ED 12:40
DX: I71.4 Abdominal aortic aneurysm, without rupture (principal); M48.061 Spinal stenosis, lumbar region without neurogenic claudication; E78.00 Pure hypercholesterolemia, unspecified; I10 Essential (primary) hypertension; K21.9 Gastro-esophageal reflux disease without esophagitis; Z88.0 Allergy status to penicillin; Z88.5 Allergy status to narcotic agent; Z88.1 Allergy status to other antibiotic agents; Z79.899 Other long term (current) drug therapy; Z79.82 Long term (current) use of aspirin
CPT/HCPCS: 36415; 74174; 74174-26; 80048; 81001; 96374; 96375; 99283; 99284-25; J1170; J1885; J3490; Q9967

== ENCOUNTER 2022-01-05 02:40 | Emergency (ER) | payer MEDICARE, BC ==
[2022-01-05] MEDS: HYDROmorphone 1 MG/ML Syringe IVPUSH PRN ×3 (06:31→15:29)
[2022-01-05] MEDS ORDERED: Ketorolac 30 MG/ML SDV IVPUSH ONE (10:18)
[2022-01-05] MEDS ORDERED: fentaNYL 50 MCG/ML SDV IVPUSH ONE (14:15)
[2022-01-05 15:48] VITALS: BP 114/75; PULSE 113
== END 2022-01-05 15:50 ==
LOC: JP.ED 02:40
DX: S32.020A Wedge compression fracture of second lumbar vertebra, initial encounter for closed fracture (principal); R20.0 Anesthesia of skin; M06.9 Rheumatoid arthritis, unspecified; E78.00 Pure hypercholesterolemia, unspecified; I10 Essential (primary) hypertension; K21.9 Gastro-esophageal reflux disease without esophagitis; M19.90 Unspecified osteoarthritis, unspecified site; Z88.0 Allergy status to penicillin; Z88.5 Allergy status to narcotic agent; Z88.1 Allergy status to other antibiotic agents; Z79.899 Other long term (current) drug therapy; Z79.82 Long term (current) use of aspirin; Z79.02 Long term (current) use of antithrombotics/antiplatelets; Z72.0 Tobacco use; Z74.09 Other reduced mobility; Z20.822 Contact with and (suspected) exposure to COVID-19
CPT/HCPCS: 36415; 51702; 72131; 80053; 83735; 85025; 85651; 86140; 96374; 96375; 96376; 99284; 99285-25; J1170; J1885; J3010; U0002

== ENCOUNTER 2022-12-03 00:02 | Emergency (ER) | payer MEDICARE, BC ==
[2022-12-03] MEDS ORDERED: Sodium Chloride 0.9% 10 ML Syringe FLUSH PRN (00:05)
[2022-12-03] MEDS ORDERED: fentaNYL 50 MCG/ML SDV IVPUSH ONE ×3 (00:06→06:41)
[2022-12-03] MEDS ORDERED: Sodium Chloride 0.9% 1,000 ML IV SCH (01:00)
[2022-12-03] MEDS ORDERED: HYDROmorphone 0.5 MG/0.5 ML Syringe IVPUSH ONE ×2 (07:13→08:34)
[2022-12-03 10:00] VITALS: BP 148/92; PULSE 91
== END 2022-12-03 10:03 ==
LOC: JP.ED 00:02
DX: S72.011A Unspecified intracapsular fracture of right femur, initial encounter for closed fracture (principal); S50.01XA Contusion of right elbow, initial encounter; I71.43 Infrarenal abdominal aortic aneurysm, without rupture; M81.0 Age-related osteoporosis without current pathological fracture; I25.10 Atherosclerotic heart disease of native coronary artery without angina pectoris; D64.9 Anemia, unspecified; I87.2 Venous insufficiency (chronic) (peripheral); M05.60 Rheumatoid arthritis of unspecified site with involvement of other organs and systems; M25.561 Pain in right knee; I10 Essential (primary) hypertension; I25.2 Old myocardial infarction; Z88.0 Allergy status to penicillin; Z88.5 Allergy status to narcotic agent; Z88.1 Allergy status to other antibiotic agents; Z79.82 Long term (current) use of aspirin; Z79.899 Other long term (current) drug therapy; Z79.02 Long term (current) use of antithrombotics/antiplatelets; Z20.822 Contact with and (suspected) exposure to COVID-19; W18.30XA Fall on same level, unspecified, initial encounter
CPT/HCPCS: 36415; 73560; 73700; 80048; 85025; 85610; 85730; 96374; 96375; 96376; 99285; J1170; J3010; J3490; J7030; U0002

== ENCOUNTER 2023-08-22 07:35 | Inpatient (IN) | payer MEDICARE, BC ==
[2023-08-22] MEDS ORDERED: Nozin Nasal Sanitizer NASBOTH SCH (08:00)
[2023-08-22] MEDS ORDERED: Lactated Ringers 1,000 ML IV SCH (08:10)
[2023-08-22] MEDS ORDERED: Propofol 200 MG/20 ML SDV ONE (08:13)
[2023-08-22] MEDS ORDERED: fentaNYL 100 MCG/2 ML SDV ONE ×3 (08:13→12:35)
[2023-08-22 08:25] LABS: HEMATOCRIT 39.4 % (34.3-46.0); HEMOGLOBIN 13.1 g/dL (11.2-15.5); MEAN CORPUSCULAR HEMOGLOBIN 33.2 pg (31.6-35.5); MEAN CORPUSCULAR HGB CONC 33.2 g/dL (31.6-35.5); RED BLOOD CELL COUNT 3.94 M/uL (3.77-5.24); WHITE BLOOD CELL COUNT,WBC 4.5 K/uL (3.2-11.0)
[2023-08-22] MEDS ORDERED: Bupivacaine 0.5% 50 ML MDV ONE (08:38)
[2023-08-22 08:46] LABS: ALANINE AMINOTRANSFERASE,ALT 23 U/L (12-78); ALBUMIN 3.4 g/dL (3.4-5.0); ALKALINE PHOSPHATASE 67 U/L (46-116); ASPARTATE AMNIOTRANSFERASE,AST 26 U/L (15-37); BILIRUBIN TOTAL 0.4 mg/dL (0.2-1.0); BLOOD UREA NITROGEN,BUN 12 mg/dL (7-18); CALCIUM 8.5 mg/dL (8.5-10.1); CARBON DIOXIDE,CO2 29 mmol/L (21-32); CHLORIDE,CL 100 mmol/L (100-108); CREATININE 0.6 mg/dL (0.6-1.0); ESTIMATED GFR 93 mL/min (>60); GLUCOSE RANDOM 91 mg/dL (74-106); POTASSIUM,K 3.2 mmol/L (3.6-5.2); PROTEIN TOTAL,TP 6.9 g/dL (6.4-8.2); SODIUM,NA 138 mmol/L (140-148)
[2023-08-22 08:49] LABS: ANION GAP 12.2 mmol/L (5.0-14.0)
[2023-08-22] MEDS ORDERED: ceFAZolin 2 GM in Premix Bag 1 BAG IV ONE (09:45)
[2023-08-22] MEDS ORDERED: Dexamethasone 4 MG/ML SDV ONE (11:08)
[2023-08-22] MEDS ORDERED: Succinylcholine 200 MG/10 ML MDV ONE (11:08)
[2023-08-22] MEDS ORDERED: Neostigmine Methylsulfate 10 MG/10 ML MDV ONE (11:08)
[2023-08-22] MEDS ORDERED: Glycopyrrolate 0.2 MG/ML 5 ML MDV ONE (11:08)
[2023-08-22] MEDS ORDERED: Rocuronium 50 MG/5 ML Vial ONE (11:08)
[2023-08-22] MEDS ORDERED: Ondansetron 4 MG/2 ML SDV ONE (11:08)
[2023-08-22] MEDS ORDERED: Phenylephrine 1% 10 MG/ML SDV ONE (11:56)
[2023-08-22] MEDS ORDERED: Sodium Chloride 0.9% 10 ML ONE (11:56)
[2023-08-22] MEDS ORDERED: Magnesium Hydroxide 400 MG/5 ML Susp 30 ML Cup PO PRN (12:41)
[2023-08-22] MEDS ORDERED: Ondansetron 4 MG Tab.DIS PO PRN (12:41)
[2023-08-22] MEDS ORDERED: Morphine 2 MG/ML SYRINGE IVPUSH PRN (12:41)
[2023-08-22] MEDS ORDERED: Nitroglycerin 0.4 MG Tab.SL SL PRN (12:52)
[2023-08-22] MEDS ORDERED: oxyCODONE 5 MG Tab PO PRN (12:55)
[2023-08-22] MEDS ORDERED: HYDROmorphone 0.5 MG/0.5 ML Syringe IVPUSH PRN (13:13)
[2023-08-22] MEDS ORDERED: Naloxone 0.4 MG/ML SDV IVPUSH PRN (13:13)
[2023-08-22] MEDS: Sodium Chloride 0.9% 1,000 ML IV SCH ×2 (13:55→20:39)
[2023-08-22] MEDS: Acetaminophen 500 MG Tab PO SCH ×2 (14:01→20:35)
[2023-08-22] MEDS: traMADol 50 MG Tab PO PRN ×2 (14:02→19:42)
[2023-08-22] MEDS: Gabapentin 300 MG Cap PO SCH ×2 (17:10→22:17)
[2023-08-22] MEDS: Docusate Sodium 100 MG Cap PO SCH (20:31)
[2023-08-22] MEDS: Nozin Nasal Sanitizer NASBOTH SCH (20:31)
[2023-08-22] MEDS: Metoprolol Tartrate 25 MG Tab PO SCH (20:32)
[2023-08-22] MEDS: Cyclobenzaprine 10 MG Tab PO SCH (20:34)
[2023-08-22] MEDS: oxyCODONE 5 MG Tab PO PRN (22:17)
[2023-08-23] MEDS: Gabapentin 300 MG Cap PO SCH ×4 (05:18→21:23)
[2023-08-23] MEDS: Sodium Chloride 0.9% 1,000 ML IV SCH ×2 (05:20→14:01)
[2023-08-23 06:36] LABS: HEMATOCRIT 28.2 % (34.3-46.0); HEMOGLOBIN 9.2 g/dL (11.2-15.5); MEAN CORPUSCULAR HGB CONC 32.6 g/dL (31.6-35.5); MEAN CORPUSCULAR VOLUME 101.1 fL (81.4-99.0); RED BLOOD CELL COUNT 2.79 M/uL (3.77-5.24); WHITE BLOOD CELL COUNT,WBC 6.4 K/uL (3.2-11.0)
[2023-08-23] MEDS: Pantoprazole 40 MG Tab.CR PO SCH (07:41)
[2023-08-23] MEDS: oxyCODONE 5 MG Tab PO PRN ×2 (07:41→12:50)
[2023-08-23] MEDS: Docusate Sodium 100 MG Cap PO SCH ×2 (08:38→21:21)
[2023-08-23] MEDS: Nozin Nasal Sanitizer NASBOTH SCH ×2 (08:38→21:21)
[2023-08-23] MEDS: Aspirin 81 MG Tab.Chew PO SCH (08:38)
[2023-08-23] MEDS: Folic Acid 1 MG Tab PO SCH (08:39)
[2023-08-23] MEDS: Cyclobenzaprine 10 MG Tab PO SCH ×2 (08:39→21:21)
[2023-08-23] MEDS: Clopidogrel 75 MG Tab PO SCH (08:39)
[2023-08-23] MEDS: Metoprolol Tartrate 25 MG Tab PO SCH ×3 (08:40→21:29)
[2023-08-23] MEDS: Hydrochlorothiazide/Triamterene 25-37.5 Tab PO SCH (08:40)
[2023-08-23] MEDS: Acetaminophen 500 MG Tab PO SCH ×3 (08:40→21:22)
[2023-08-23] MEDS ORDERED: Non-Formulary Medication 1 Each (Omeprazole [Omeprazole] 20 MG Capsule.Dr) PO SCH (09:00)
[2023-08-23] MEDS ORDERED: FOLIC ACID 0.8 MG PO SCH (09:00)
[2023-08-23] MEDS: traMADol 50 MG Tab PO PRN (17:42)
[2023-08-24] MEDS: oxyCODONE 5 MG Tab PO PRN ×2 (02:08→07:57)
[2023-08-24] MEDS: Gabapentin 300 MG Cap PO SCH ×4 (05:20→21:02)
[2023-08-24] MEDS: Pantoprazole 40 MG Tab.CR PO SCH (07:28)
[2023-08-24] MEDS: Nozin Nasal Sanitizer NASBOTH SCH ×2 (09:01→21:01)
[2023-08-24] MEDS: Aspirin 81 MG Tab.Chew PO SCH (09:04)
[2023-08-24] MEDS: Docusate Sodium 100 MG Cap PO SCH ×2 (09:04→21:02)
[2023-08-24] MEDS: Cyclobenzaprine 10 MG Tab PO SCH ×2 (09:05→21:01)
[2023-08-24] MEDS: Folic Acid 1 MG Tab PO SCH (09:05)
[2023-08-24] MEDS: Acetaminophen 500 MG Tab PO SCH ×3 (09:06→21:01)
[2023-08-24] MEDS: Clopidogrel 75 MG Tab PO SCH (09:06)
[2023-08-24] MEDS: Metoprolol Tartrate 25 MG Tab PO SCH ×2 (09:06→21:07)
[2023-08-24] MEDS: Hydrochlorothiazide/Triamterene 25-37.5 Tab PO SCH (09:06)
[2023-08-24] MEDS: traMADol 50 MG Tab PO PRN (17:54)
[2023-08-25 04:46] LABS: HEMATOCRIT 21.8 % (34.3-46.0); HEMOGLOBIN 7.3 g/dL (11.2-15.5); MEAN CORPUSCULAR HEMOGLOBIN 33.6 pg (31.6-35.5); MEAN CORPUSCULAR HGB CONC 33.5 g/dL (31.6-35.5); MEAN CORPUSCULAR VOLUME 100.5 fL (81.4-99.0); RED BLOOD CELL COUNT 2.17 M/uL (3.77-5.24); WHITE BLOOD CELL COUNT,WBC 6.7 K/uL (3.2-11.0)
[2023-08-25 04:57] LABS: CALCIUM 7.5 mg/dL (8.5-10.1); CREATININE 0.5 mg/dL (0.6-1.0); EST CRCL DRUG DOSING (CG) 68.75 mL/min
[2023-08-25 05:11] LABS: ANION GAP 5.7 mmol/L (5.0-14.0); POTASSIUM,K 2.7 mmol/L (3.6-5.2)
[2023-08-25] MEDS: Gabapentin 300 MG Cap PO SCH ×4 (05:29→21:04)
[2023-08-25] MEDS: Aspirin 81 MG Tab.Chew PO SCH (08:11)
[2023-08-25] MEDS: Nozin Nasal Sanitizer NASBOTH SCH ×2 (08:11→21:03)
[2023-08-25] MEDS: Metoprolol Tartrate 25 MG Tab PO SCH ×2 (08:11→21:04)
[2023-08-25] MEDS: Hydrochlorothiazide/Triamterene 25-37.5 Tab PO SCH (08:11)
[2023-08-25] MEDS: Docusate Sodium 100 MG Cap PO SCH ×2 (08:11→21:04)
[2023-08-25] MEDS: Pantoprazole 40 MG Tab.CR PO SCH (08:11)
[2023-08-25] MEDS: Acetaminophen 500 MG Tab PO SCH ×3 (08:12→21:04)
[2023-08-25] MEDS: Cyclobenzaprine 10 MG Tab PO SCH ×2 (08:12→21:04)
[2023-08-25] MEDS: Folic Acid 1 MG Tab PO SCH (08:12)
[2023-08-25] MEDS: Clopidogrel 75 MG Tab PO SCH (08:12)
[2023-08-25] MEDS: traMADol 50 MG Tab PO PRN ×2 (08:40→21:03)
[2023-08-25] MEDS: Potassium Chloride 20 MEQ Tab.ER PO SCH ×2 (09:52→21:04)
[2023-08-25] MEDS: NS with KCl 40mEq 1,000 ML IV SCH (11:16)
[2023-08-26 05:11] LABS: HEMATOCRIT 27.3 % (34.3-46.0); HEMOGLOBIN 9.3 g/dL (11.2-15.5); MEAN CORPUSCULAR HGB CONC 34.1 g/dL (31.6-35.5); MEAN CORPUSCULAR VOLUME 96.8 fL (81.4-99.0); RED BLOOD CELL COUNT 2.82 M/uL (3.77-5.24); WHITE BLOOD CELL COUNT,WBC 5.9 K/uL (3.2-11.0)
[2023-08-26] MEDS: Gabapentin 300 MG Cap PO SCH ×5 (05:22→21:21)
[2023-08-26 05:25] LABS: ANION GAP 6.9 mmol/L (5.0-14.0); CALCIUM 7.4 mg/dL (8.5-10.1); CREATININE 0.5 mg/dL (0.6-1.0); EST CRCL DRUG DOSING (CG) 68.75 mL/min; POTASSIUM,K 3.6 mmol/L (3.6-5.2)
[2023-08-26] MEDS: NS with KCl 40mEq 1,000 ML IV SCH (06:59)
[2023-08-26] MEDS: Pantoprazole 40 MG Tab.CR PO SCH (07:00)
[2023-08-26] MEDS: Hydrochlorothiazide/Triamterene 25-37.5 Tab PO SCH (08:00)
[2023-08-26] MEDS: Clopidogrel 75 MG Tab PO SCH (08:00)
[2023-08-26] MEDS: Docusate Sodium 100 MG Cap PO SCH ×2 (08:00→20:03)
[2023-08-26] MEDS: Nozin Nasal Sanitizer NASBOTH SCH ×2 (08:00→20:01)
[2023-08-26] MEDS: Acetaminophen 500 MG Tab PO SCH ×3 (08:00→20:05)
[2023-08-26] MEDS: Folic Acid 1 MG Tab PO SCH (08:00)
[2023-08-26] MEDS: Metoprolol Tartrate 25 MG Tab PO SCH ×2 (08:00→20:05)
[2023-08-26] MEDS: Aspirin 81 MG Tab.Chew PO SCH (08:01)
[2023-08-26] MEDS: Cyclobenzaprine 10 MG Tab PO SCH ×2 (08:01→20:04)
[2023-08-26] MEDS: Potassium Chloride 20 MEQ Tab.ER PO SCH ×2 (08:01→20:04)
[2023-08-27] MEDS: traMADol 50 MG Tab PO PRN (04:50)
[2023-08-27] MEDS: Gabapentin 300 MG Cap PO SCH ×4 (05:43→21:07)
[2023-08-27] MEDS: Pantoprazole 40 MG Tab.CR PO SCH (07:31)
[2023-08-27] MEDS: Nozin Nasal Sanitizer NASBOTH SCH ×2 (08:57→21:05)
[2023-08-27] MEDS: Aspirin 81 MG Tab.Chew PO SCH (08:58)
[2023-08-27] MEDS: Folic Acid 1 MG Tab PO SCH (08:58)
[2023-08-27] MEDS: Clopidogrel 75 MG Tab PO SCH (08:58)
[2023-08-27] MEDS: Potassium Chloride 20 MEQ Tab.ER PO SCH ×2 (08:58→21:07)
[2023-08-27] MEDS: Cyclobenzaprine 10 MG Tab PO SCH ×2 (08:58→21:10)
[2023-08-27] MEDS: Hydrochlorothiazide/Triamterene 25-37.5 Tab PO SCH (08:58)
[2023-08-27] MEDS: Docusate Sodium 100 MG Cap PO SCH ×2 (08:58→21:06)
[2023-08-27] MEDS: Acetaminophen 500 MG Tab PO SCH ×3 (08:59→21:08)
[2023-08-27] MEDS: Metoprolol Tartrate 25 MG Tab PO SCH (21:10)
[2023-08-28] MEDS: Gabapentin 300 MG Cap PO SCH ×2 (05:57→09:15)
[2023-08-28] MEDS: Pantoprazole 40 MG Tab.CR PO SCH (07:16)
[2023-08-28] MEDS: Potassium Chloride 20 MEQ Tab.ER PO SCH (09:15)
[2023-08-28] MEDS: Acetaminophen 500 MG Tab PO SCH (09:15)
[2023-08-28] MEDS: Clopidogrel 75 MG Tab PO SCH (09:15)
[2023-08-28] MEDS: Folic Acid 1 MG Tab PO SCH (09:16)
[2023-08-28] MEDS: Cyclobenzaprine 10 MG Tab PO SCH (09:16)
[2023-08-28] MEDS: Docusate Sodium 100 MG Cap PO SCH (09:16)
[2023-08-28] MEDS: Hydrochlorothiazide/Triamterene 25-37.5 Tab PO SCH (09:16)
[2023-08-28] MEDS: Nozin Nasal Sanitizer NASBOTH SCH (09:17)
[2023-08-28] MEDS: Aspirin 81 MG Tab.Chew PO SCH (09:17)
[2023-08-28] MEDS: Metoprolol Tartrate 25 MG Tab PO SCH (09:17)
[2023-08-28 11:12] VITALS: BP 109/81; PULSE 93
== END 2023-08-28 13:20 | disposition home health service (06) | DRG 467 ==
LOC: JP.SDS 07:35 → JP.MS 12:41
PROVIDERS: ADMIT Specialist; ATTEND Specialist
PROC: 0SPR0JZ Removal of Synthetic Substitute from Right Hip Joint, Femoral Surface, Open Approach (ICD-10-PCS; 2023-08-22)
PROC: 0SRR0JA Replacement of Right Hip Joint, Femoral Surface with Synthetic Substitute, Uncemented, Open Approach (ICD-10-PCS; principal; 2023-08-22 09:15)
DX: T84.89XA Other specified complication of internal orthopedic prosthetic devices, implants and grafts, initial encounter (principal); D62 Acute posthemorrhagic anemia; M87.851 Other osteonecrosis, right femur; I25.10 Atherosclerotic heart disease of native coronary artery without angina pectoris; I10 Essential (primary) hypertension; M06.9 Rheumatoid arthritis, unspecified; E78.5 Hyperlipidemia, unspecified; E87.6 Hypokalemia; K21.9 Gastro-esophageal reflux disease without esophagitis; I25.2 Old myocardial infarction; Z88.0 Allergy status to penicillin; Z88.1 Allergy status to other antibiotic agents; Z88.5 Allergy status to narcotic agent; Z88.8 Allergy status to other drugs, medicaments and biological substances; Z90.49 Acquired absence of other specified parts of digestive tract; Z98.890 Other specified postprocedural states; Z98.51 Tubal ligation status; Z87.891 Personal history of nicotine dependence; Z79.02 Long term (current) use of antithrombotics/antiplatelets; Z79.82 Long term (current) use of aspirin; Z79.899 Other long term (current) drug therapy
CPT/HCPCS: 36415; 36430; 72170; 72170-26; 80048; 80053; 85027; 86850; 86900; 86901; 86920; 86922; 97110-GP; 97116-GP; 97161-GP; 97165-GO; 97530-GP; 97535-GO; A9270-GY; C1776; J0330; J0690; J1100; J1170; J2371; J2405; J2704; J2710; J3010; J3480; J3490; J7030; J7120; P9016; U0002

== ENCOUNTER 2024-08-06 06:58 | Day surgery (SDC) | payer MEDICARE, BC ==
[2024-08-06] MEDS ORDERED: Propofol 200 MG/20 ML SDV ONE (07:38)
[2024-08-06] MEDS ORDERED: Rocuronium 50 MG/5 ML Vial ONE (07:38)
[2024-08-06] MEDS ORDERED: Succinylcholine 200 MG/10 ML MDV ONE (07:38)
[2024-08-06] MEDS ORDERED: Glycopyrrolate 0.2 MG/ML 5 ML MDV ONE (07:38)
[2024-08-06] MEDS ORDERED: Neostigmine Methylsulfate 10 MG/10 ML MDV ONE (07:38)
[2024-08-06] MEDS ORDERED: Dexamethasone 4 MG/ML SDV ONE (07:38)
[2024-08-06] MEDS ORDERED: Ondansetron 4 MG/2 ML SDV ONE (07:38)
[2024-08-06] MEDS ORDERED: fentaNYL 250 MCG/5 ML SDV ONE ×2 (07:39→11:24)
[2024-08-06 07:42] LABS: BASOPHILS ABSOLUTE AUTO 0.06 K/uL (0.00-0.10); BASOPHILS PERCENT AUTO 0.9 % (0.1-1.3); EOSINOPHILS ABSOLUTE AUTO 0.33 K/uL (0.00-0.40); HEMATOCRIT 39.9 % (34.3-46.0); HEMOGLOBIN 13.6 g/dL (11.2-15.5); IMMATURE GRAN PERCENT AUTO 0.3 % (0.0-0.7); LYMPHOCYTES ABSOLUTE AUTO 1.04 K/uL (0.8-3.3); LYMPHOCYTES PERCENT AUTO 15.7 % (11.4-47.7); MEAN CORPUSCULAR HEMOGLOBIN 34.3 pg (31.6-35.5); MEAN CORPUSCULAR HGB CONC 34.1 g/dL (31.6-35.5); MEAN CORPUSCULAR VOLUME 100.5 fL (81.4-99.0); MONOCYTES ABSOLUTE AUTO 0.66 K/uL (0.20-0.90); NEUTROPHILS ABSOLUTE AUTO 4.52 K/uL (1.0-7.6); NEUTROPHILS PERCENT AUTO 68.1 % (40.0-78.1); PLATELET COUNT,PLT 211 K/uL (130-375); RED BLOOD CELL COUNT 3.97 M/uL (3.77-5.24); WHITE BLOOD CELL COUNT,WBC 6.6 K/uL (3.2-11.0)
[2024-08-06 07:43] LABS: IMMATURE GRAN ABSOLUTE AUTO 0.02 K/uL (0.00-0.23)
[2024-08-06 08:02] LABS: A/G RATIO 0.9 (1.2-2.2); ALANINE AMINOTRANSFERASE,ALT 24 U/L (12-78); ALBUMIN 3.5 g/dL (3.4-5.0); ALKALINE PHOSPHATASE 99 U/L (46-116); ANION GAP 7.6 mmol/L (5.0-14.0); ASPARTATE AMNIOTRANSFERASE,AST 25 U/L (15-37); BILIRUBIN TOTAL 0.4 mg/dL (0.2-1.0); BLOOD UREA NITROGEN,BUN 13 mg/dL (7-18); CALCIUM 9.4 mg/dL (8.5-10.1); CARBON DIOXIDE,CO2 31 mmol/L (21-32); CHLORIDE,CL 101 mmol/L (100-108); CREATININE 0.7 mg/dL (0.6-1.0); EST CRCL DRUG DOSING (CG) 48.34 mL/min; ESTIMATED GFR 89 mL/min (>60); GLUCOSE RANDOM 104 mg/dL (74-106); POTASSIUM,K 3.6 mmol/L (3.6-5.2); PROTEIN TOTAL,TP 7.5 g/dL (6.4-8.2); SODIUM,NA 140 mmol/L (140-148)
[2024-08-06] MEDS: Lactated Ringers 1,000 ML IV SCH (08:15)
[2024-08-06] MEDS: Nozin Nasal Sanitizer NASBOTH ONE (08:39)
[2024-08-06] MEDS: ceFAZolin 2 GM in Premix Bag 1 BAG IV ONE (10:40)
[2024-08-06] MEDS ORDERED: Lactated Ringers 1,000 ML ONE (11:41)
[2024-08-06] MEDS: Bupivacaine 0.5% 30 ML SDV ONE (12:59)
[2024-08-06] MEDS ORDERED: Docusate Sodium 100 MG Cap PO PRN (13:26)
[2024-08-06] MEDS ORDERED: Ondansetron 4 MG/2 ML SDV IVPUSH PRN (13:26)
[2024-08-06] MEDS ORDERED: Nitroglycerin 0.4 MG Tab.SL SL PRN (13:32)
[2024-08-06] MEDS: Ketorolac 15 MG/ML SDV IVPUSH PRN (14:17)
[2024-08-06] MEDS: HYDROmorphone 2 MG Tab PO PRN (15:07)
[2024-08-06] MEDS: Acetaminophen 325 MG Tab PO SCH (15:08)
[2024-08-06] MEDS: ceFAZolin 2 GM in Premix Bag 1 BAG IV SCH (16:17)
[2024-08-06] MEDS: Sodium Chloride 0.9% 1,000 ML IV SCH (16:17)
[2024-08-06] MEDS: Cyclobenzaprine 10 MG Tab PO SCH (21:14)
[2024-08-06] MEDS: Gabapentin 300 MG Cap PO SCH (21:18)
[2024-08-06] MEDS: Metoprolol Tartrate 25 MG Tab PO SCH (21:19)
[2024-08-06] MEDS: Nozin Nasal Sanitizer NASBOTH SCH (21:39)
[2024-08-07 05:47] LABS: HEMATOCRIT 30.7 % (34.3-46.0); HEMOGLOBIN 10.3 g/dL (11.2-15.5); MEAN CORPUSCULAR HEMOGLOBIN 33.9 pg (31.6-35.5); MEAN CORPUSCULAR HGB CONC 33.6 g/dL (31.6-35.5); RED BLOOD CELL COUNT 3.04 M/uL (3.77-5.24); WHITE BLOOD CELL COUNT,WBC 7.4 K/uL (3.2-11.0)
[2024-08-07] MEDS: Pantoprazole 40 MG Tab.CR PO SCH (08:10)
[2024-08-07] MEDS: Folic Acid 1 MG Tab PO SCH (08:10)
[2024-08-07] MEDS: Hydrochlorothiazide/Triamterene 25-37.5 Tab PO SCH (08:10)
[2024-08-07] MEDS: Aspirin 81 MG Tab.Chew PO SCH (08:10)
[2024-08-07] MEDS: Multivitamins with Iron/Calcium/Folic Acid/Minerals Tab PO SCH (08:11)
[2024-08-07] MEDS: Calcium Carbonate/Vitamin D3 1500 MG-400 Units Tab PO SCH (08:12)
[2024-08-07] MEDS: Clopidogrel 75 MG Tab PO SCH (08:12)
[2024-08-07] MEDS: Potassium Chloride 10 MEQ Cap.ER PO SCH (08:12)
[2024-08-07] MEDS: traMADol 50 MG Tab PO PRN (08:48)
[2024-08-07] MEDS ORDERED: traMADol 50 MG Tab PO SCH (09:00)
[2024-08-07] MEDS ORDERED: NABUMETONE 500 MG PO SCH (09:00)
[2024-08-08 05:58] VITALS: BP 96/71; PULSE 83
[2024-08-12] MEDS ORDERED: Methotrexate 2.5 MG Tab PO SCH (09:00)
== END 2024-08-08 11:02 | disposition home health service (06) ==
LOC: JP.SDS 06:58 → JP.MS 13:26 → JP.SDS 08-08 11:02
PROVIDERS: ATTEND Specialist
DX: M97.31XA Periprosthetic fracture around internal prosthetic right shoulder joint, initial encounter (principal); M25.711 Osteophyte, right shoulder; I25.10 Atherosclerotic heart disease of native coronary artery without angina pectoris; I10 Essential (primary) hypertension; Z79.82 Long term (current) use of aspirin; Z79.899 Other long term (current) drug therapy
CPT/HCPCS: 01740; 24515; 36415; 73060; 80053; 85025; 85027; 93005; 97110; 97161; 97165; 97535; A9270; C1713; C1776; J0330; J0665; J0690; J1100; J1596; J1885; J2405; J2704; J2710; J3010; J7030; J7120; J3490

== ENCOUNTER 2024-12-16 14:10 | Emergency (ER) | payer MEDICARE, BC | END 2024-12-16 15:10 | disposition left against medical advice (07) | LOC: JP.ED 14:10 | DX: Z53.21 Procedure and treatment not carried out due to patient leaving prior to being seen by health care provider (principal) ==

== ENCOUNTER 2025-05-16 07:21 | Emergency (ER) | payer MEDICARE, BC ==
[2025-05-16 07:38] VITALS: BP 150/79; PULSE 82
[2025-05-16] MEDS: Bacitracin Oint 1 GM U/D Packet TOP ONE (08:21)
[2025-05-16] MEDS: Diphtheria,Pertussis(Acell),Tetanus Vaccine 0.5 ML Syringe IM ONE (08:21)
[2025-05-16] MEDS: Lidocaine 1% with EPINEPHrine 1:100,000 50 ML MDV SUBCUT STA (08:21)
== END 2025-05-16 09:52 | disposition home or self-care (01) ==
LOC: JP.ED 07:21
DX: S01.81XA Laceration without foreign body of other part of head, initial encounter (principal); I10 Essential (primary) hypertension; I25.2 Old myocardial infarction; I25.10 Atherosclerotic heart disease of native coronary artery without angina pectoris; K21.9 Gastro-esophageal reflux disease without esophagitis; Z23 Encounter for immunization; Z88.5 Allergy status to narcotic agent; Z88.2 Allergy status to sulfonamides; Z88.1 Allergy status to other antibiotic agents; Z79.899 Other long term (current) drug therapy; W01.198A Fall on same level from slipping, tripping and stumbling with subsequent striking against other object, initial encounter; Y93.89 Activity, other specified
CPT/HCPCS: 12011; 70450; 70486; 90471; 90715; 99283-25